=== PATIENT | female | born 1945 | race Caucasian/White ===

== ENCOUNTER 2017-10-10 13:45 | Outpatient (RCR) | payer MEDICARE, OTHER ==
--- NOTE | 2017-07-19 10:56 | PT INITIAL EVALUATION ---
MEDICAL DIAGNOSIS: recurrent falls TREATMENT DIAGNOSIS: same, low back pain with radiating pain, neck pain, R knee pain DATE OF ONSET: 07/18/15 SUBJECTIVE: Helena Ceballos presents to physical therapy with complaints of recurrent falls, low back pain with radiating pain, and neck pain that has started approximately 2 years ago and feels like her low back pain with radiating pain is getting worse and limiting her ability to ambulate any distance, as a result, she has decreased her activity level because of the pain , which has resulted in decreased balance, strength, and function along with more frequent falls. She states that she has experienced 4-5 falls in the past 6 months to a year. She reports that she had her R shoulder RTC repaired twice and L TKA in the recent years. Furthermore, she reports increased R knee pain due to arthritis. She reports that she would like to resolve the low back pain prior to anything else and then transition to strengthening and balance exercises to further reduce her reoccurrence of falls. She reports that she was going to get some Cortizone shots in her low back regions, however, the physicians could not agree on the certain level within the lumbar spine. She states that she has had a history of bulging discs at L 3-4 and L 4-5. She reports that when she does her aggravating activities such as vacuuming, cooking, bending forward, or doing laundry, she rates her pain to be 9/10. Pain location is L gluteal near PSIS (radiates down posterior thigh and then into L lateral and described as dull achy (constant) . Pain scale is 4 on a ten point pain scale. Pain is worse with vacuuming, cooking, bending forward, doing laundry and better with sitting, resting. REHAB PROBLEM LIST: PREVIOUS MEDICAL HISTORY: See EMR OCCUPATION: Retired from [employer] OBJECTIVE: Posture: She demonstrated B rounded shoulders, increased thoracic kyphosis, and decreased lumbar lordosis. ROM: NIL with trunk flexion, R/L sidegliding, minimal restriction with extension and empty end feels with all. Strength: Core strength: upper core: 4/5, middle core: 3+/5, and lower core: 4-/ 5. Pain with core strength testing Palpation: TTP over L gluteal region near PSIS and L3-5 spinous/facets Sensation: WNLs with dermatomes: L2-S2 Special Tests: Repeated flexion in standing: pain felt at end feel and worse following testing. Repeated extension in standing: stretch felt at end feel and better (abolished her pain) following testing. Repeated flexion in lying: stretch felt at end feel and worse (increased pain intensity) following testing. Repeated extension in lying: stretch felt at end feel and better ( abolished her pain) following testing. Add pressure to repeated extension in lying with further centralization and decreased symptoms following. As a result a lateral component does not exist, therefore, it is not necessary to test R or L side gliding. Mobility: Independent Gait: No AD: demonstrated increased base of support, decreased velocity, antalgic gait, decreased trunk rotation, decreased B UE movement (swing). Balance: Will test in future ASSESSMENT: Helena will benefit from skilled physical therapy addressing the listed impairments to return to prior level of function. Following the examination, she demonstrates symptoms that are consistent with posterior derangement that responded well to extension based principles in both her cervical and low back regions. Short Term Goals 2 weeks: Pt will demonstrate centralized low back symptoms to improve function and QOL. 4 weeks: Pt will demonstrate abolished low back symptoms with function activities to improve function and QOL. 6 weeks: Pt will be able to ambulate more than 1/2 mile with 0/10 low back pain to improve function and QOL. 8 weeks: Pt will be able to perform tandem stance/decreased base of support with eyes closed on a complaint surface for greater than 30 seconds with 0/10 low back pain to improve function and QOL. Patient's Goals decrease low back pain so that she can get back to walking along with getting back to balance/strength exercises to prevent these reoccurring falls PLAN: Patient to be seen for manual therapy, ther ex, neuromuscular reeducation , home exercise program, and gait training. If you have any questions, comments, or concerns about this report or plan, please contact me at . Thank you, Miguel Kay, PT, DPT [facility]
--- NOTE | 2017-09-15 14:20 | PT PLAN OF CARE ---
Physician: Emily Jordan MD Patient is being seen: 2x/week Therapist: Miguel Kay, PT, DPT Medical Diagnosis: recurrent falls Treatment Diagnosis: same, low back pain with radiating pain, neck pain, R knee pain Date of Onset: 07/18/15 Date of Initial Evaluation: 07/18/17 Date patient was last seen: 09/14/17 Number of treatments: 10 Number of cancellations/No shows: 3 INTERVENTIONS: PLAN: Patient to be seen for manual therapy, ther ex, neuromuscular reeducation, home exercise program, and gait training. Short Term Goals 2 weeks: Pt will demonstrate centralized low back symptoms to improve function and QOL. MET 4 weeks: Pt will demonstrate abolished low back symptoms with function activities to improve function and QOL. MET 6 weeks: Pt will be able to ambulate more than 1/2 mile with 0/10 low back pain to improve function and QOL. MET 8 weeks: Pt will be able to perform tandem stance/decreased base of support with eyes closed on a complaint surface for greater than 30 seconds with 0/10 low back pain to improve function and QOL. Progressing toward Patient's Goals decrease low back pain so that she can get back to walking along with getting back to balance/strength exercises to prevent these reoccurring falls Status of Patient's Goals: Progressing well Patient Compliance: Good Prognosis: Good Reasons for continuing therapy: This is a progress note for Helena Ceballos. She reports that her back continues to do well. She states that if she does have pain or twigs, she is able to do her exercise and they go completely away. She states that she has not had any vertigo since the previous session. She states that she now wants to work on her balance and endurance during ambulation. She continues to progress well within PT and has demonstrated the following improvements: abolished low back pain and increased trunk AROM in all directions with normal end feels. Within her neuromuscular system, it appears the her vestibular system is currently relaying on her vision and somatosensation, therefore, moving forward in PT, we would like to improve the response from her vestibular system to improve balance strategies and return her to prior level of function. As a result, we would like to continue PT 2x/ week for 4 more weeks. OBJECTIVE: Posture: She demonstrated B rounded shoulders, increased thoracic kyphosis, and decreased lumbar lordosis. ROM: NIL with trunk flexion, R/L sidegliding, NIL with extension and normal end feels with all. Strength: Core strength: upper core: 4/5, middle core: 4-/5, and lower core: 4/ 5. No pain Palpation: No longer is TTP Special Tests: roll test to the R and L (+) for positional vertigo. posterior/ anterior canal to the R and L (-). Sensation: WNLs with dermatomes: L2-S2 Mobility: Independent Gait: No AD: demonstrated increased base of support, decreased velocity, antalgic gait, decreased trunk rotation, decreased B UE movement (swing). Balance: Complaint surface with normal or decreased base of support with eyes closed > 10 seconds. tandem stance, eyes opened, on compliant surface > 10 seconds. She did not have any difficulty with eyes opened on firm or compliant surface with normal base of support or decreased base of support. If you have any questions, comments, or concerns about this report or plan, please contact me at . Thank you, Miguel Kay, PT, DPT [facility]
[~2017-10-10 13:45] MED LIST: ALBU8.5H IH; AMI10 PO; AMIT-108 PO; AMLO-99 PO; AMOX-362 PO; ASPI-1471 PO; ATOR20TA65 PO; BIOT250012 PO; BISA-236 RC; BUPR-472 PO; CALC-733 PO; CALC1TAB32 PO; CALC600T63 PO; CHLO12TA PO; CHOL10005 PO; CHOL200021 PO; CIPR-345 PO; CITA-139 PO; CITA-141 PO; CYAN1000 IJ; DUL20 PO; DULO60CA7 PO; FERR27TA3 PO; FLU180SY9 IM; FLU44R INH; FLU45SYR17 IM; FLU45SYR25 IM ONLY; LEVO75TA73 PO; LISI-1 PO; LISI-362 PO; LISI5TAB25 PO; LOR5 PO; LOR5/325 PO; LOSA-51 PO; LOSA-54 PO; MELO-150 PO; MET500 PO; MOM PO; NAPR-1043 PO; NEED-601 MC; OMEP-125 PO; OXYC-373 PO; PER PO; PNEU0.5D3 IM; RIV10 PO; ROPI0.2528 PO; ROSU20TA3 PO; SIMV-54 PO; SUMA50TA34 PO; TORADOL; TRA50 PO; TUM500 PO; ZOLP-1 PO; [UNRECOGNIZED DRUG - CODE] MC
--- NOTE | 2017-10-27 14:05 | PT PLAN OF CARE ---
Physician: Emily Jordan MD Patient is being seen: 1-2x/week Therapist: Miguel Kay, PT, DPT Medical Diagnosis: recurrent falls Treatment Diagnosis: same, low back pain with radiating pain, neck pain, R knee pain Date of Onset: 07/18/15 Date of Initial Evaluation: 07/18/17 Date patient was last seen: 10/26/17 Number of treatments: 14 Number of cancellations/No shows: 0 INTERVENTIONS: PLAN: Patient to be seen for manual therapy, ther ex, neuromuscular reeducation, home exercise program, and gait training. Short Term Goals 2 weeks: Pt will demonstrate centralized low back symptoms to improve function and QOL. MET 4 weeks: Pt will demonstrate abolished low back symptoms with function activities to improve function and QOL. MET 6 weeks: Pt will be able to ambulate more than 1/2 mile with 0/10 low back pain to improve function and QOL. MET 8 weeks: Pt will be able to perform tandem stance/decreased base of support with eyes closed on a complaint surface for greater than 30 seconds with 0/10 low back pain to improve function and QOL. MET Patient's Goals decrease low back pain so that she can get back to walking along with getting back to balance/strength exercises to prevent these reoccurring falls Status of Patient's Goals: MET Patient Compliance: Good Prognosis: Good Reasons for continuing therapy: This is a discharge note for Helena Ceballos. She reports that she is doing well. She denies any back pain. She states that if the pain has returned she is able to abolish the back pain quickly by performing her exercise. She states that she feels like the balance and walking has significantly improved. She states that she feels like she can perform the recovery of function at home with her current home exercise program. She has progressed well within PT with the following improvements: increased balance strategies, increased involvement of vestibular system as demonstrated by increased time from 10 seconds to 60 seconds with complaint surface, eyes closed , and decreased base of support, abolished low back pain, increased trunk AROM in all directions with normal end feels, and return to prior level. She reports that she feels like she is independent on her HEP and will continue to perform. She has met all of her goals. As a result, she will be discharged from PT to [facility]. OBJECTIVE: Posture: She demonstrated B rounded shoulders, increased thoracic kyphosis, and decreased lumbar lordosis. ROM: NIL with trunk flexion, R/L sidegliding, NIL with extension and normal end feels with all. Strength: Core strength: upper core: 4/5, middle core: 4/5, and lower core: 4/ 5. No pain Palpation: No longer is TTP Special Tests: roll test to the R and L (-) for positional vertigo. posterior/ anterior canal to the R and L (-). Sensation: WNLs with dermatomes: L2-S2 Mobility: Independent Gait: No AD: demonstrated increased base of support, decreased velocity, antalgic gait, decreased trunk rotation, decreased B UE movement (swing). Balance: Complaint surface with normal or decreased base of support with eyes closed > 60 seconds. tandem stance, eyes opened, on compliant surface 60 seconds. If you have any questions, comments, or concerns about this report or plan, please contact me at . Thank you, Miguel Kay, PT, DPCatherine ZARAGOZA
== END 2017-10-27 ==
LOC: PT 13:45
PROVIDERS: ATTEND Emergency Medicine
DX: R29.6 Repeated falls (principal); M54.5 Low back pain; M54.2 Cervicalgia; M25.561 Pain in right knee; M06.9 Rheumatoid arthritis, unspecified; M62.81 Muscle weakness (generalized); Z96.652 Presence of left artificial knee joint
CPT/HCPCS: 97162

== ENCOUNTER → 2017-11-20 | Outpatient (CLI) | payer MEDICARE, OTHER ==
[~2017-11-20] MED LIST changes: +ROSU20TA13 PO; -ROSU20TA3 PO
--- NOTE | 2017-11-21 10:12 | RADIOLOGY IMAGING REPORT ---
FACILITY: [facility] - [place] PATIENT NAME: FER SALMON : [id number] MR: [id number] V: [id number] EXAM DATE: ORDERING PHYSICIAN: NICKY WHEELER TECHNOLOGIST: Lev Bell EXAMINATION:TWO-DIMENSIONAL ECHOCARDIOGRAPH REASON:HEART MURMUR. 2D Measurements (normal values in centimeters) LV endLV endRV endVent.LV PostAorticLeftPercent DiastolicSystolicDiastolicSeptumWallRootAtriumShortening (3.5-5.7)(0.9-2.6)(0.6-1.1)(0.6-1.1)(2.0-3.7)(1.9-4.0)(25-35%) [id number]% STROKE VOLUME: 88 mL ESTIMATED EJECTION FRACTION:77% PARASTERNAL LONG AXIS: Overall left ventricular systolic function appears to be normal. No wall motion abnormalities are noted. The aortic valve is mildly sclerotic but appears to open normally. Mitral valve also appears to open normally. Color examination of the valves reveals a trace amount of mitral insufficiency. Color examination of the aortic valve was unremarkable. PARASTERNAL SHORT AXIS: Overall left ventricular systolic function is normal. Chamber sizes also appear to be normal. The aortic valve is trileaflet in configuration and appears to open normally with minimal aortic sclerosis. Color examination of the pulmonic valve reveals a trace of pulmonic insufficiency. Color examination of the aortic valve was unremarkable. APICAL FOUR AND TWO CHAMBER: Normal left ventricular ejection fraction and normal chamber sizes. The right ventricle appears to contract normally. The TAPSE is measured at 2.3 which is normal. Left atrial and right atrial volumes are measured within normal range at 23.5 and 16.2 mL/m2. Aortic valve area and mitral valve area both measure within normal range at 2.7 and 2.8 cm2 respectively. Mile amount of tricuspid insufficiency is noted. A trace of mitral insufficiency is noted. Tricuspid regurgitation V-max is measured at 3.11 m/sec. Estimated right atrial pressure is 3 mmHg giving a total right ventricular pressure of 42 mmHg. SUBCOSTAL VIEW: No pericardial effusion was noted. No atrial septal or ventricular septal defects were appreciated. The Doppler examination of the mitral valve in diastole does reveal a normal pattern but there is decreased medial and lateral E prime velocities. There is no reversal with Valsalva maneuver. IVC is normal in size. OVERALL IMPRESSION: 1. Normal left ventricular ejection fraction of 77% with a grade 2/4 decrease in diastolic function. 2. Normal chamber sizes. 3. Trileaflet aortic valve with mild aortic sclerosis but no stenosis nor any insufficiency present. 4. A trace of mitral insufficiency. 5. A trace of pulmonic insufficiency. 6. There is a mild amount of tricuspid insufficiency with estimated right ventricular systolic pressures at 42 mmHg which does include an estimated right atrial pressure of 3 mmHg indicating mild pulmonary hypertension and increased right ventricular systolic pressures. Dictated by: Rebecca Espinoza M.D. on 11/20/2017 at 14:10 Transcribed by: VIDAL on 11/21/2017 at 10:00 Approved by: Rebecca Espinoza M.D. on 11/21/2017 at 10:11 [facility]
--- NOTE | 2017-11-22 09:31 | RADIOLOGY IMAGING REPORT ---
FACILITY: [facility] PATIENT NAME: FER SALMON : [id number] MR: [id number] V: [id number] EXAM DATE: [id number] ORDERING PHYSICIAN: NICKY WHEELER TECHNOLOGIST: Natividad Koch PROCEDURE:BILATERAL DIAGNOSTIC DIGITAL MAMMOGRAM WITH CAD AND 3D BREAST TOMOSYNTHESIS. LIMITED LEFT BREAST ULTRASOUND COMPARISON:Mammogram of 01/13/16 and 12/05/12. INDICATIONS:PALPABLE ABNORMALITY IN THE 4 O'CLOCK AREA OF THE LEFT BREAST. MAMMOGRAPHIC FINDINGS: The breasts have scattered fibroglandular parenchymal densities. There are a few small benign appearing nodular foci or masses in the breasts some of which punctate central calcifications suggesting hyalinized fibroadenomas. No concerning mass is demonstrated on either side. No focal mammographic finding of concern in the 4 o'clock area of the left breast. ULTRASOUND FINDINGS: Imaging of the lateral aspect of the breast concentrating in the area of palpable concern at 4 o'clock was performed. There is no discrete solid or cystic abnormality in the region of palpable concern shown by the patient. Ultrasound does show a tiny cyst closer to the 3 o'clock area in the breast. No suspicious sonographic finding. DIAGNOSTIC CATEGORY 2--BENIGN FINDING. RECOMMENDATIONS: ROUTINE MAMMOGRAM AND CLINICAL EVALUATION. CLINICAL EVALUATION. IMPRESSION: Bi-RADS 2: Benign finding. RECOMMENDATION: 1. Clinical followup of the area of palpable concern on the left. In the absence of imaging, management should be based on clinical grounds. 2. Followup mammogram in one year. I discussed exam findings with the patient at the completion of the ultrasound. Dictated by: Dyllan Duarte on 11/20/2017 at 15:08 Transcribed by: VIDAL on 11/20/2017 at 23:23 Approved by: Carola Jeffrey M.D. on 11/22/2017 at 8:55 [facility]
--- NOTE | 2017-11-22 09:31 | RADIOLOGY IMAGING REPORT ---
FACILITY: [facility] - [place], [place] PATIENT NAME: FER SALMON : [id number] MR: [id number] V: [id number] EXAM DATE: [id number] ORDERING PHYSICIAN: NICKY WHEELER TECHNOLOGIST: Zonia Bazzi PROCEDURE:BILATERAL DIAGNOSTIC DIGITAL MAMMOGRAM WITH CAD AND 3D BREAST TOMOSYNTHESIS. LIMITED LEFT BREAST ULTRASOUND COMPARISON:Mammogram of 01/13/16 and 12/05/12. INDICATIONS:PALPABLE ABNORMALITY IN THE 4 O'CLOCK AREA OF THE LEFT BREAST. MAMMOGRAPHIC FINDINGS: The breasts have scattered fibroglandular parenchymal densities. There are a few small benign appearing nodular foci or masses in the breasts some of which punctate central calcifications suggesting hyalinized fibroadenomas. No concerning mass is demonstrated on either side. No focal mammographic finding of concern in the 4 o'clock area of the left breast. ULTRASOUND FINDINGS: Imaging of the lateral aspect of the breast concentrating in the area of palpable concern at 4 o'clock was performed. There is no discrete solid or cystic abnormality in the region of palpable concern shown by the patient. Ultrasound does show a tiny cyst closer to the 3 o'clock area in the breast. No suspicious sonographic finding. DIAGNOSTIC CATEGORY 2--BENIGN FINDING. RECOMMENDATIONS: ROUTINE MAMMOGRAM AND CLINICAL EVALUATION. CLINICAL EVALUATION. IMPRESSION: Bi-RADS 2: Benign finding. RECOMMENDATION: 1. Clinical followup of the area of palpable concern on the left. In the absence of imaging, management should be based on clinical grounds. 2. Followup mammogram in one year. I discussed exam findings with the patient at the completion of the ultrasound. Dictated by: Dyllan Duarte on 11/20/2017 at 14:37 Transcribed by: VIDAL on 11/20/2017 at 23:22 Approved by: Carola Jeffrey M.D. on 11/22/2017 at 8:55 [facility]
== END ==
LOC: US 02:08
PROVIDERS: ATTEND Emergency Medicine
DX: I08.3 Combined rheumatic disorders of mitral, aortic and tricuspid valves (principal); I27.20 Pulmonary hypertension, unspecified; N60.02 Solitary cyst of left breast
CPT/HCPCS: 77062; 77066; 93306

== ENCOUNTER → 2018-02-02 | Outpatient (CLI) | payer MEDICARE, OTHER ==
[~2018-02-02] MED LIST changes: +HYDR-2966 PO; +RANI-324 PO
[2018-02-02 09:09] LABS: PLATELET COUNT, AUTOMATED 172 K/uL (150-450)
[2018-02-02 09:35] LABS: LDL CHOLESTEROL 80 mg/dl
== END ==
LOC: LAB 08:40
PROVIDERS: ATTEND Emergency Medicine
DX: I10 Essential (primary) hypertension (principal); E53.8 Deficiency of other specified B group vitamins; R73.03 Prediabetes
CPT/HCPCS: 36415; 82040; 82247; 82310; 82374; 82435; 82465; 82565; 82607; 82947; 83036; 83718; 84075; 84132; 84155; 84295; 84450; 84460; 84478; 84520; 85025

== ENCOUNTER → 2018-05-25 | Outpatient (CLI) | payer MEDICARE, OTHER ==
[~2018-05-25] MED LIST changes: -CITA-139 PO; +CITA-145 PO; -RANI-324 PO; +RANI-366 PO; -ROSU20TA13 PO; +ROSU20TA5 PO; +SITA100T PO; +UMEC1DIS INH
== END ==
LOC: LAB 12:02
PROVIDERS: ATTEND Emergency Medicine
DX: E11.9 Type 2 diabetes mellitus without complications (principal); E03.9 Hypothyroidism, unspecified
CPT/HCPCS: 36415; 82310; 82374; 82435; 82465; 82565; 82947; 83036; 83718; 84132; 84295; 84443; 84478; 84520

== ENCOUNTER → 2018-06-27 | Outpatient (CLI) | payer MEDICARE, OTHER ==
[~2018-06-27] MED LIST changes: +AMLO-113 PO; -AMLO-99 PO; +BLOO-1037 MC; +BLOO-960 MC; +INSU200I4 SC; +LANC-714 MC; -ROPI0.2528 PO; +ROPI0.2530 PO
== END ==
LOC: RESP 20:43
PROVIDERS: ATTEND Emergency Medicine
DX: G47.33 Obstructive sleep apnea (adult) (pediatric) (principal); G47.61 Periodic limb movement disorder; G47.36 Sleep related hypoventilation in conditions classified elsewhere

== ENCOUNTER → 2018-08-06 | Outpatient (CLI) | payer MEDICARE, OTHER ==
[~2018-08-06] MED LIST changes: +FLU180SY11 IM
[2018-08-06 15:13] LABS: PLATELET COUNT, AUTOMATED 188 K/uL (150-450)
== END ==
LOC: LAB 14:52
PROVIDERS: ATTEND Emergency Medicine
DX: Z01.818 Encounter for other preprocedural examination (principal); N39.0 Urinary tract infection, site not specified; R82.79 Other abnormal findings on microbiological examination of urine
CPT/HCPCS: 36415; 81001; 82040; 82247; 82310; 82374; 82435; 82565; 82947; 83036; 84075; 84132; 84155; 84295; 84450; 84460; 84520; 85025; 87088

== ENCOUNTER → 2018-08-09 | Outpatient (CLI) | payer MEDICARE, OTHER ==
--- NOTE | 2018-08-09 18:37 | EKG ---
FACILITY: [facility] - [place] PATIENT NAME: FER SALMON : [id number] MR: [id number] V: [id number] EXAM DATE: ORDERING PHYSICIAN: NICKY WHEELER TECHNOLOGIST: MARLIN Test Reason : SURGERY CLEARANCE Blood Pressure : / mmHG Vent. Rate : 066 BPM Atrial Rate : 066 BPM P-R Int : 152 ms QRS Dur : 110 ms QT Int : 448 ms P-R-T Axes : 050 -04 029 degrees QTc Int : 469 ms Normal sinus rhythm Incomplete left bundle branch block Nonspecific ST abnormality Abnormal ECG When compared with ECG of 27-MAY-2013 09:12, Incomplete left bundle branch block is now present Confirmed by DEEPIKA RUEDA ([id number]) on 08/10/2018 6:15:56 AM Referred By: LIAM Confirmed By:DEEPIKA RUEDA
== END ==
LOC: RESP 16:01
PROVIDERS: ATTEND Emergency Medicine
DX: Z02.9 Encounter for administrative examinations, unspecified (principal)

== ENCOUNTER → 2018-08-17 | Outpatient (CLI) | payer MEDICARE, OTHER | LOC: LAB 13:46 | PROVIDERS: ATTEND Anesthesiology | DX: Z01.812 Encounter for preprocedural laboratory examination (principal); M75.101 Unspecified rotator cuff tear or rupture of right shoulder, not specified as traumatic; E11.8 Type 2 diabetes mellitus with unspecified complications; E07.9 Disorder of thyroid, unspecified; N39.0 Urinary tract infection, site not specified | CPT/HCPCS: 81001 ==

== ENCOUNTER → 2018-08-21 | Outpatient (CLI) | payer MEDICARE, OTHER | LOC: LAB 13:42 | PROVIDERS: ATTEND Emergency Medicine | DX: N39.0 Urinary tract infection, site not specified (principal) | CPT/HCPCS: 81001 ==

== ENCOUNTER 2018-08-28 02:37 | Inpatient (IN) | payer MEDICARE, OTHER ==
[2018-08-27 16:34] LABS: INR 0.99
[2018-08-28] VITALS (17 sets, daily range): BP systolic 95–155; BP diastolic 45–86
[~2018-08-28] VITALS: Ht 160 cm; Wt 118.8 kg
[~2018-08-28 02:37] MED LIST changes: +ceFAZolin(*) 2GM/D5W 50ML 50 ML IVPB ONE
[2018-08-28] MEDS ORDERED: ROPIVACAINE 0.2% 20 ML VIAL ONE (06:37)
[2018-08-28] MEDS ORDERED: LIDO/EPI 2% MPF 1:200,000 20ML ONE ×2 (06:37→10:45)
[2018-08-28] MEDS ORDERED: fentaNYL CITR 250 MCG/5 ML AMP ONE (08:57)
[2018-08-28] MEDS ORDERED: LIDOCAINE 2% IV 100 MG/5ML SYR ONE (08:58)
[2018-08-28] MEDS ORDERED: PROPOFOL EMUL(*) 10MG/ML 20 ML 20 ML ONE (09:02)
[2018-08-28] MEDS ORDERED: PREGABALIN 75 MG CAPSULE PO ONE (09:15)
[2018-08-28] MEDS ORDERED: LIDOCAINE/SOD BICARB 8.4% SYR ID ONE (09:15)
[2018-08-28] MEDS ORDERED: BACITRACIN 50000 UNIT/VIAL 100,000 UNIT in NS 0.9% 3000 ML IRRIGATION BAG 3,000 ML IR ONE (09:15)
[2018-08-28] MEDS ORDERED: NORMOSOL R SOLN(*) 1000 ML BAG 1,000 ML IV PRN (09:15)
[2018-08-28] MEDS ORDERED: MIDAZOLAM 2 MG/2 ML VIAL IVP PRN (09:15)
[2018-08-28] MEDS ORDERED: ACETAMINOPHEN 500 MG TAB PO ONE (09:15)
[2018-08-28] MEDS ORDERED: ceFAZolin(*) 2GM/D5W 50ML 50 ML IVPB ONE (09:15)
[2018-08-28] MEDS ORDERED: cloNIDine EPIDUR INJ 100MCG/ML 40 MCG, ROPIVACAINE 0.5% 20 ML VIAL 25 ML, EPINEPHrine H... EPI ONE (09:15)
[2018-08-28] MEDS ORDERED: LIDO/EPI 1% MDV 1:100,000 20ML INFIL ONE (10:22)
[2018-08-28] MEDS ORDERED: ROCURONIUM BROM 10 MG/ML 10 ML ONE (10:30)
[2018-08-28] MEDS ORDERED: SUGAMMADEX SOD 500 MG/5 ML SDV ONE (10:30)
[2018-08-28] MEDS ORDERED: KETAMINE HCL 200 MG/20 ML MDV ONE ×2 (10:47→11:51)
[2018-08-28] MEDS ORDERED: VASOPRESSIN 20 UNIT/ML VIAL ONE (11:08)
[2018-08-28] MEDS ORDERED: EPINEPHrine HCL 1 MG/ML AMP ONE (11:16)
[2018-08-28] MEDS ORDERED: ONDANSETRON 4 MG/2 ML VIAL ONE (12:13)
[2018-08-28] MEDS ORDERED: FLUSH 10 ML SYR IVP PRN (13:10)
[2018-08-28] MEDS ORDERED: MAGNESIUM CITRATE 300 ML BTL PO PRN (13:10)
[2018-08-28] MEDS ORDERED: LR 1000 ML BAG 1000 ML IV PRN (13:10)
[2018-08-28] MEDS ORDERED: diphenhydrAMINE 50 MG/ML VIAL IVP PRN (13:10)
[2018-08-28] MEDS ORDERED: BISACODYL 10 MG SUPP PR PRN (13:10)
[2018-08-28] MEDS ORDERED: HYDROmorphone HCL 2 MG/ML SDV IVP PRN (13:10)
[2018-08-28] MEDS ORDERED: PROMETHAZINE 25 MG/ML 1 ML AMP IVP PRN (13:10)
[2018-08-28] MEDS ORDERED: ZOLPIDEM TARTRATE 5 MG TAB PO PRN (13:10)
[2018-08-28] MEDS ORDERED: ONDANSETRON 4 MG/2 ML VIAL IVP PRN (13:10)
[2018-08-28] MEDS ORDERED: diphenhydrAMINE 25 MG CAP PO PRN (13:10)
[2018-08-28] MEDS ORDERED: MAGNESIUM HYDROXIDE* 30ML UDCP PO PRN (13:10)
[2018-08-28] MEDS ORDERED: fentaNYL CITR 100 MCG/2 ML AMP ONE (13:14)
--- NOTE | 2018-08-28 14:22 | OPERATIVE REPORT 1 ---
EVENT DATE: August 28, 2018 SURGEON: Lee Victor MD ANESTHESIOLOGIST: ANESTHESIA: General LMA. SALES NEGOTIATOR: RADHA Estrada, INDEPENDENT VIDEO PRODUCER PREOPERATIVE DIAGNOSIS Right shoulder rotator cuff tear arthropathy and failed rotator cuff repair prior. POSTOPERATIVE DIAGNOSIS Right shoulder rotator cuff tear arthropathy and failed rotator cuff repair prior. PROCEDURE PERFORMED Right reverse total shoulder arthroplasty with removal of implant deep x2, which were the suture anchors from the prior repair. FINDINGS The patient had a significant amount of arthritic changes associated with the rotator cuff tear and also loose fragments associated with the prior anchors. ESTIMATED BLOOD LOSS About 240 mL. DRAINS None. COMPLICATIONS None. TOURNIQUET TIME Not applicable. IMPLANTS USED DJO surgical reverse with standard reverse glenoid baseplate, four screws which were 30 mm, 22 mm, 26 mm and 14 mm, a 32/-4 glenoid head with standard screw and 8 porous coated standard stem with 32 mm standard poly. SPECIMENS None. INDICATIONS AND HISTORY: This patient is a 73-year-old female that presented to my clinic for evaluation of right shoulder pain and irritation going on for some time. She failed the rotator cuff repair previously and continued to have pain and irritation associated with the shoulder. We decided to go ahead with reverse total shoulder arthroplasty since she had failed a prior soft tissue procedure and since she had started to develop arthritic changes associated with this. The risks and benefits were discussed with the patient and inform consent was obtained at the last clinic visit and we talked about the implications of this and how it does not guarantee great relief associated with it but most people get fairly good relief. DESCRIPTION OF PROCEDURE The patient was brought into the operating room. She and the procedure were both verified. She was placed supine on the operating table and induced intubated by anesthesia. The right upper extremity was prepped and draped in the usual fashion after the patient was put in the beach chair position. I then anesthetized the skin with 2% lidocaine solution with epinephrine. Another time-out was observed, verifying the correct patient and procedure. I then made a standard deltopectoral incision through the skin and subcutaneous tissue. I was then able to go down to the deltopectoral interval and identify the cephalic vein. Once I was able to identify the cephalic vein, I was then able to retract the deltoid to the lateral side and then tied in the biceps with tenodesis into the pectoral area. I then was able to get down to the clavipectoral fascia and then open up the subscap without any major difficulty using electrocautery on the lesser tuberosity. Once I was able to remove the subscap, I was then able to tag it for later repair. I then dislocated the shoulder and cut off the head without any major difficulty in the standard fashion for the DJO implant. I then removed all the osteophytes and then turned attention to the glenoid. Once on the glenoid, I was able to place retractors 360 degrees around the glenoid. I then was able to remove the labrum without any major difficulty associated with this and then was able to drill the central hole through the central portion of the glenoid in accordance with the DJO system. I then put in the standard tamp and was able to ream without any major difficulty and then was able to place the standard glenoid baseplate without any major difficulty associated with this and had good fixation associated with the bone. I then put in four locking screws with a 26 superior, 30 posterior, 26 inferior and 14 posterior associated with this. We then were able to ream around the outside of the glenoid baseplate and then put in the glenoid superior, which was a 32/-4 without any difficulty. I put in a set screw and then turned attention back to the humerus. Once on the humerus, I was then able to broach up to a 10 mm reamer through the central canal. I was unable to ream up top in order to ream down to the standard socket size for the reverse prosthesis. This was then followed by placement of four drill holes through the lesser tuberosity in order to repair the subscap after the case. I then was able to put in the standard 8 stem after bone grafting the humeral canal and then was able to relocate it with the standard liner without any major difficulty. I then removed that and put in the final liner, which was polyethylene liner from the DJO system. Once I relocated again and had good tension all over, I was able to move it all in all directions. I then repaired the subscap without any difficulty after irrigating with copious amounts of saline and injecting the pain cocktail throughout the joint. I then was able to irrigate again and close the deltopectoral interval with a #2 Stratafix followed by 2-0 Stratafix in the subcutaneous tissue and subcuticular 4-0 running Monocryl. The wound was then dressed with steri- strips, gauze, 4x4s and soft dressing. The patient was awakened, extubated and transferred to PACU in stable condition after being put in a standard sling. MILA
--- NOTE | 2018-08-28 15:07 | RADIOLOGY IMAGING REPORT ---
[facility] PATIENT NAME: Helena Ceballos : 1945 MR: [id number] V: [id number] EXAM DATE: ORDERING PHYSICIAN: VINOD DAWSON TECHNOLOGIST: Location: [facility] Patient: Helena Ceballos : 1945 Visit/Account:[id number] Date of Sevice: 08/28/2018 Exam type: SHOULDER 1 VIEW RIGHT History: S/P R SHOULDER Comparison: None. Findings: There is a reversed right shoulder arthroplasty appears in good anatomic alignment on this AP view IMPRESSION: 1. As above Report Dictated By: Carola Jeffrey MD at 08/28/2018 3:02 PM Report E-Signed By: Carola Jeffrey MD at 08/28/2018 3:03 PM WSN:[email or web address]
[2018-08-28] MEDS ORDERED: ALBUTEROL 2.5 MG/3 ML NEB NEB PRN (15:25)
--- NOTE | 2018-08-28 15:40 | Hospitalist Progress Note ---
Subjective Progress Notes Subjective No cp/sob. 240cc of EBL. 1850cc of crystalloid, vasopressin and ephedrine intra-op. Physical Exam Vital Signs Date Time Temp Pulse Resp B/P (MAP) Pulse Ox O2 Delivery O2 Flow Rate FiO2 08/28/18 14:45 75 18 117/62 (80) 92 Oxy Mask 5.0 08/28/18 14:10 97.1 General Appearance: Alert, Awake, No Acute Distress Cardiovascular: Regular Rate and Rhythm Respiratory: Clear to Auscultation Extremities: Edema (Trace pitting in shins) Integumentary: No Jaundice, No Cyanosis Assessment and Plan Problems: (1) S/p reverse total shoulder arthroplasty Status: Acute Assessment & Plan: No CV/pulmonary issues. No h/o DVT/PE. Will defer to Dr. Victor for DVT prophylaxis. (2) Insulin-requiring or dependent type II diabetes mellitus Status: Chronic Assessment & Plan: Chronically on Januvia and 68 units of Tresiba. Will continue Januvia and use 40 units of Lantus a day. AC and HS glucose with SSI level 2. (3) Hypertension Status: Chronic Assessment & Plan: Continue chronic amlodipine, losartan/hctz, and hctz with parameters. (4) Depression Status: Chronic Assessment & Plan: Continue chronic Cymbalta. (5) Hypercholesterolemia Status: Chronic Assessment & Plan: Continue chronic Crestor. (6) PLMD (periodic limb movement disorder) Status: Chronic Assessment & Plan: Continue chronic ropinirole. (7) JERRY treated with BiPAP Status: Chronic Assessment & Plan: She brought her BiPAP. (8) Morbid obesity Status: Chronic Exam Sepsis Risk: No Definite Risk Problem Qualifiers (1) S/p reverse total shoulder arthroplasty: Laterality: right Qualified Codes: Z96.611 - Presence of right artificial shoulder joint BILL KNIGHT MD Aug 28, 2018 15:40
[2018-08-28] MEDS: INSULIN HUM LISPRO 100 UN/ML 3 ML VIAL SUBQ PRN ×2 (17:09→21:02)
[2018-08-28] MEDS: FLUTICASONE PROP 44 MCG INH INH SCH (17:14)
[2018-08-28] MEDS: ceFAZolin(*) 2GM/D5W 50ML 50 ML IVPB SCH (17:21)
[2018-08-28] MEDS ORDERED: ROSUVASTATIN CALCIUM 10 MG TAB PO SCH (21:00)
[2018-08-28] MEDS ORDERED: AMITRIPTYLINE HCL 25 MG TAB PO SCH (21:00)
[2018-08-28] MEDS: RANITIDINE HCL 150 MG TAB PO SCH (21:02)
[2018-08-29] MEDS: ceFAZolin(*) 2GM/D5W 50ML 50 ML IVPB SCH ×2 (02:21→09:38)
[2018-08-29 03:33] VITALS: BP 110/61
[2018-08-29] MEDS: FLUTICASONE PROP 44 MCG INH INH SCH (05:33)
[2018-08-29] MEDS ORDERED: UMECLIDINIUM BRM INH SCH (06:00)
[2018-08-29] MEDS ORDERED: VILANTEROL TR INH SCH (06:00)
--- NOTE | 2018-08-29 06:47 | Hospitalist Progress Note ---
Subjective Progress Notes Subjective No cp/sob. Physical Exam Vital Signs Date Time Temp Pulse Resp B/P (MAP) Pulse Ox O2 Delivery O2 Flow Rate FiO2 08/29/18 05:33 94 High-Flow Nasal Cannula 8.0 08/29/18 03:33 98.3 65 110/61 (77) 08/28/18 21:52 20 Intake and Output 08/29/18 07:00 Intake Total 2390 ml Balance 2390 ml Intake Oral 100 ml IV Total 2290 ml # Voids 1 General Appearance: Alert, Awake, No Acute Distress Result Diagram: 08/29/18 0553 08/29/1853 Assessment and Plan Problems: (1) S/p reverse total shoulder arthroplasty Status: Acute Assessment & Plan: No CV/pulmonary issues. No h/o DVT/PE. Will defer to Dr. Nataliia Young for DVT prophylaxis. (2) Insulin-requiring or dependent type II diabetes mellitus Status: Chronic Assessment & Plan: Chronically on Januvia and 68 units of Tresiba. Will continue Januvia and use 40 units of Lantus a day while in the hospital. AC and HS glucose with SSI level 2. (3) Hypertension Status: Chronic Assessment & Plan: Continue chronic amlodipine, losartan/hctz, and hctz with parameters. (4) Depression Status: Chronic Assessment & Plan: Continue chronic Cymbalta. (5) Hypercholesterolemia Status: Chronic Assessment & Plan: Continue chronic Crestor. (6) PLMD (periodic limb movement disorder) Status: Chronic Assessment & Plan: Continue chronic ropinirole. (7) JERRY treated with BiPAP Status: Chronic Assessment & Plan: She brought her BiPAP. (8) Morbid obesity Status: Chronic Exam Sepsis Risk: No Definite Risk Problem Qualifiers (1) S/p reverse total shoulder arthroplasty: Laterality: right Qualified Codes: Z96.611 - Presence of right artificial shoulder joint BILL KNIGHT MD Aug 29, 2018 06:47
[2018-08-29 07:21] VITALS: BP 158/79
[2018-08-29] MEDS ORDERED: OXYC-373 PO (08:26)
[2018-08-29] MEDS: RANITIDINE HCL 150 MG TAB PO SCH (08:32)
[2018-08-29] MEDS: INSULIN HUM LISPRO 100 UN/ML 3 ML VIAL SUBQ PRN ×2 (08:36→12:26)
[2018-08-29] MEDS ORDERED: DULoxetine HCL 30 MG CAPCR PO SCH (09:00)
[2018-08-29] MEDS ORDERED: amLODIPine BESYL(*) 5 MG TAB PO SCH (09:00)
[2018-08-29] MEDS ORDERED: LOSARTAN POTASSIUM 50 MG TAB PO SCH (09:00)
[2018-08-29] MEDS ORDERED: INSULIN GLARGINE 100 U/ML 3 ML PEN SUBQ SCH (09:00)
[2018-08-29] MEDS ORDERED: HYDROCHLOROTHIAZIDE 25 MG TAB PO SCH (09:00)
== END 2018-08-29 13:45 | disposition home or self-care (01) | DRG 483 ==
LOC: OR 02:37 → MED 14:00
PROVIDERS: ADMIT Orthopaedic Surgery; ATTEND Orthopaedic Surgery
PROC: 0RRJ00Z Replacement of Right Shoulder Joint with Reverse Ball and Socket Synthetic Substitute, Open Approach (ICD-10-PCS; principal; 2018-08-28 10:37)
DX: M19.011 Primary osteoarthritis, right shoulder (principal); Z68.42 Body mass index [BMI] 45.0-49.9, adult; E11.9 Type 2 diabetes mellitus without complications; I10 Essential (primary) hypertension; G47.33 Obstructive sleep apnea (adult) (pediatric); E66.01 Morbid (severe) obesity due to excess calories; J45.909 Unspecified asthma, uncomplicated; K21.9 Gastro-esophageal reflux disease without esophagitis; G25.81 Restless legs syndrome; E78.5 Hyperlipidemia, unspecified; F32.9 Major depressive disorder, single episode, unspecified; G47.61 Periodic limb movement disorder; Z99.81 Dependence on supplemental oxygen; Z79.4 Long term (current) use of insulin; Z90.49 Acquired absence of other specified parts of digestive tract; Z90.710 Acquired absence of both cervix and uterus; Z96.652 Presence of left artificial knee joint
CPT/HCPCS: 36415; 36416; 82310; 82374; 82435; 82565; 82947; 82948; 84132; 84295; 84520; 85014; 85018; 85610; 86850; 86900; 86901; 94640; 97165; A4565; C1776; J0171; J0690; J1815; J2001; J2250; J2405; J2704; J2795; J3010; J3490

== ENCOUNTER 2018-08-30 08:32 | Emergency (ER) | payer MEDICARE, OTHER ==
--- NOTE | 2018-08-30 08:33 | ER Report ---
History and Physical Time Seen By MD: 08:33 HPI/ROS CHIEF COMPLAINT: SOB HISTORY OF PRESENT ILLNESS: Patient is a 73-year-old female who is postop day #2 from a right shoulder surgery. Patient wears 3 L of oxygen during the day and CPAP at nighttime. She states the CPAP must have come off sometime last evening. Patient called EMS because of shortness of breath. EMS found the patient lying on the floor. She states she fell but does not really recall the circumstances of the fall. Patient denies any current anticoagulation. She denies headache. She denies chest pain. She does report exertional shortness of breath. She denies abdominal pain. She is also complaining of pain to the right shoulder that apparently feels like her postop surgical pain. She is also complaining of left hip and buttock pain which is new. Patient was able to stand and bear weight on the affected extremity according to EMS. REVIEW OF SYSTEMS: Constitutional: No fever, no chills. Eyes: No discharge. ENT: No sore throat. Cardiovascular: mild chest pressure, no palpitations. Respiratory: Dyspnea Gastrointestinal: No abdominal pain, no vomiting. Genitourinary: No hematuria. Musculoskeletal: Right shoulder pain, left hip pain Skin: No rashes. Neurological: No headache. Allergies: Coded Allergies: Sulfa (Sulfonamide Antibiotics) (Verified Allergy, Intermediate, RASH, 08/30/18) lisinopril (Verified Allergy, Intermediate, cough, 08/30/18) Uncoded Allergies: HAYFEVER (Allergy, Intermediate, SNEEZING, ITCHY EYES, 06/04/13) TAPES/ADHESIVES (Allergy, Mild, BLISTERS , 07/05/17) Home Meds Active Scripts Insulin Degludec (Tresiba Flextouch U-200) 200 Unit/Ml (3 Ml) Insuln.pen, 68 UNITS SC DAILY, #2 BOX 8 Refills Prov:NICKY WHEELER MD 08/09/18 Duloxetine HCl (Duloxetine HCl) 60 Mg Capsule.dr, 2 CAP PO DAILY, #180 CAP 1 Refill Prov:NICKY WHEELER MD 07/27/18 Sitagliptin Phosphate (JANUVIA) 100 Mg Tablet, 100 MG PO QDAY, #90 TAB 0 Refills Prov:NICKY WHEELER MD 07/04/18 Lancets (LANCETS) 1 Each Each, EACH MC DAILY, #1 Prov:NICKY WHEELER MD 06/25/18 Blood Sugar Diagnostic (BLOOD GLUCOSE TEST STRIP) 1 Each Strip, 1 EACH MC DAILY, #100 STRIP 3 Refills Prov:NICKY WHEELER MD 06/25/18 Blood-Glucose Meter (BLOOD GLUCOSE METER) 1 Each Each, EACH MC, #1 Prov:NICKY WHEELER MD 06/25/18 Umeclidinium Brm/Vilanterol Tr (Anoro Ellipta 62.5-25 Mcg INH) 1 Each Disk.w.dev, 1 INHALATION INH DAILY, #30 INHALER Prov:NICKY WHEELER MD 05/25/18 Ropinirole Hcl (ROPINIROLE HCL) 0.25 Mg Tablet, 1 TAB PO QHS, #90 TAB 1 Refill One to three hours before bedtime Prov:NICKY WHEELER MD 03/28/18 Amitriptyline Hcl (AMITRIPTYLINE HCL) 50 Mg Tablet, 1 TAB PO QHS, #90 TAB 3 Refills Prov:NICKY WHEELER MD 02/06/18 Hydrochlorothiazide (HYDROCHLOROTHIAZIDE) 25 Mg Tablet, 1 TAB PO QDAY, #90 TAB 3 Refills Prov:NICKY WHEELER MD 02/05/18 Ranitidine Hcl (ZANTAC) 150 Mg Tablet, 150 MG PO BID, #60 TAB 11 Refills Prov:NICKY WHEELER MD 02/02/18 Cyanocobalamin (Vitamin B-12) (CYANOCOBALAMIN INJECTION) 1,000 Mcg/1 Ml Vial, 1 ML IJ DIRECTED, #12 VIAL Inject 1 ml monthly for life Prov:NICKY WHEELER MD 12/07/17 Amlodipine Besylate (AMLODIPINE BESYLATE) 10 Mg Tablet, 1 TAB PO QDAY, #90 TAB 3 Refills Prov:NICKY WHEELER MD 12/07/17 Losartan/Hydrochlorothiazide (LOSARTAN-HCTZ 100-25 MG TAB) 1 Each Tablet, 1 EACH PO QDAY, #90 TAB 3 Refills Prov:NICKY WHEELER MD 12/07/17 [place], Disposable (NEEDLES) 1 Each Dis.needle, EACH MC DIRECTED, #22 23 guage 1 inch needles, use to give b12 injections. Prov:INCKY WHEELER MD 05/11/17 Syringe W-Cannula,Disp, 3ML (SYRINGE) 1 Each Disp.syrin, EACH MC DIRECTED, #22 Use for b12 injections Prov:NICKY WHEELER MD 05/11/17 Zolpidem Tartrate (AMBIEN) 5 Mg Tablet, 1 TAB PO QHS, #30 TAB 5 Refills Prov:NICKY WHEELER MD 03/31/17 Rosuvastatin Calcium (Rosuvastatin Calcium) 20 Mg Tablet, 1 TAB PO DAILY, #90 TAB 4 Refills Prov:NICKY WHEELER MD 02/08/17 Albuterol Sulfate 90 Mcg/Act (PROAIR HFA 90 MCG/ACT) 8.5 Gm Hfa.aer.ad, 2 PUFF IH Q4-6H, #1 INHALER 9 Refills Prov:NICKY WHEELER MD 01/26/16 Reported Medications Oxycodone Hcl/Acetaminophen (OXYCODONE-ACETAMINOPHEN 5-325) 1 Each Tablet, 1 EACH PO Q4H PRN for PAIN, #40 TAB 08/29/18 Cholecalciferol (Vitamin D3) (VITAMIN D3) 1,000 Unit Tablet, 1000 UNIT PO DAILY, TAB 05/19/17 Fluticasone Prop 44 Mcg (FLOVENT HFA 44 MCG) 44 Mcg Inha, 2 INH INH BID, INH 02/07/17 Calcium Carbonate (CALCIUM) 600 Mg Tablet, 1 TAB PO QDAY, TAB 11/25/15 Aspirin (ASPIR 81) 81 Mg Tablet.dr, 1 TAB PO QDAY, TAB 11/25/15 Discontinued Scripts Hydrocodone Bit/Acetaminophen (HYDROCODON-ACETAMINOPHEN 5-325) 1 Each Tablet, 1 TAB PO TID, #60 TAB Prov:NICKY WHEELER MD 06/14/18 Past Medical/Surgical History Past medical history for migraines, restless leg syndrome, history of cataracts, history of hypertension, hyperlipidemia, asthma, sleep apnea, GERD, depression, type II diabetes, recent shoulder surgery on 08/28/2018. Patient has august 15 which shows she was placed on continuous oxygen at 3 L nasal cannula for persistent pulse ox of less than or equal to 85% on room air Hx Smoking: No Smoking Status: Former Smoker Hx Alcohol Use: No Constitutional Vital Sign - Last 24 Hours 08/30/18 08/30/18 08/30/18 08/30/18 08:32 08:38 08:39 08:40 Temp 97.8 Pulse 85 81 Resp 18 B/P (MAP) 136/123 (127) 108/75 (86) 108/75 Pulse Ox 90 O2 Delivery Non-Rebreather 08/30/18 08/30/18 08/30/18 08/30/18 08:47 09:02 09:02 09:02 Pulse 79 79 Resp 16 12 Pulse Ox 92 90 O2 Delivery Non-Rebreather Non-Rebreather O2 Flow Rate 15.0 15.0 15 08/30/18 08/30/18 08/30/18 08/30/18 09:08 09:10 09:10 09:13 Pulse 79 79 Resp 16 10 B/P (MAP) 99/69 (79) Pulse Ox 93 93 O2 Delivery Non-Rebreather Non-Rebreather O2 Flow Rate 15.0 08/30/18 08/30/18 08/30/18 08/30/18 10:08 10:13 10:18 11:18 Pulse 78 79 72 Resp 20 14 18 B/P (MAP) 108/92 (97) Pulse Ox 94 88 91 O2 Delivery Non-Rebreather Non-Rebreather Non-Rebreather Physical Exam General/Constitutional: Patient is awake, alert, nontoxic wearing a facemask O2. Nonrebreather Head: Normocephalic and atraumatic. Eyes: Conjunctival clear, Pupils are equal and reactive to light. Extraocular muscles are intact and symmetrical. Sclera are clear and anicteric.. Nares: No rhinorrhea or bleeding. Turbinates are pink and moist. Oropharyngeal: Mucous membranes are moist. There is no pharyngeal erythema or exudate. There are no palatal petechiae. Uvula is midline and symmetrical. Neck: Supple, no adenopathy. Cardiovascular: Heart is regular rate and rhythm; grade 2/6 systolic ejection murmur Pulmonary: Lungs are clear to auscultation bilaterally. There are no wheezes, rales, or rhonchi. Chest rise is symmetrical Abdomen: Protuberant, soft, nontender, no guarding or peritoneal signs. Extremities: No gross deformities, No peripheral cyanosis. Able to move all 4 ex tremities. Left buttock pain no obvious deformity. Right shoulder is in a sling. The bandage was temporarily removed surgical site looks clean dry and intact. No evidence of infection Neuro: Alert and oriented X3, Skin: No rashes, skin is warm dry and well perfused. Medical Decision Making Data Points Result Diagram: 08/30/1890108/30/18901 Laboratory Hematology Test 08/30/18 09:02 Red Blood Count 3.84 M/uL (4.17-5.56) Mean Corpuscular Volume 98.1 fL (80.0-96.0) Mean Corpuscular Hemoglobin 32.5 pg (26.0-33.0) Mean Corpuscular Hemoglobin Concent 33.2 g/dL (32.0-36.0) Red Cell Distribution Width 14.3 % (11.5-14.5) Mean Platelet Volume 7.6 fL (7.2-11.1) Neutrophils (%) (Auto) 76.6 % (39.4-72.5) Lymphocytes (%) (Auto) 11.1 % (17.6-49.6) Monocytes (%) (Auto) 11.4 % (4.1-12.4) Eosinophils (%) (Auto) 0.3 % (0.4-6.7) Basophils (%) (Auto) 0.6 % (0.3-1.4) Nucleated RBC Relative Count (auto) 0.0 /100WBC Neutrophils # (Auto) 9.6 K/uL (2.0-7.4) Lymphocytes # (Auto) 1.4 K/uL (1.3-3.6) Monocytes # (Auto) 1.4 K/uL (0.3-1.0) Eosinophils # (Auto) 0.0 K/uL (0.0-0.5) Basophils # (Auto) 0.1 K/uL (0.0-0.1) Nucleated RBC Absolute Count (auto) 0.00 K/uL Prothrombin Time 14.5 seconds (12.0-14.4) Prothromb Time International Ratio 1.13 Activated Partial Thromboplast Time 37 seconds (23-35) Sodium Level 140 mmol/L (137-145) Potassium Level 4.4 mmol/L (3.5-5.0) Chloride Level 100 mmol/L (98-107) Carbon Dioxide Level 33 mmol/L (22-31) Blood Urea Nitrogen 18 mg/dl (7-18) Creatinine 0.90 mg/dl (0.52-1.04) Glomerular Filtration Rate Calc > 60.0 Random Glucose 180 mg/dl (75-110) Calcium Level 8.7 mg/dl (8.4-10.2) Total Bilirubin 1.2 mg/dl (0.2-1.3) Aspartate Amino Transf (AST/SGOT) 39 U/L (0-35) Alanine Aminotransferase (ALT/SGPT) 29 U/L (0-56) Alkaline Phosphatase 89 U/L (0-126) Total Creatine Kinase 871 U/L (30-135) Troponin I 0.290 ng/ml B-Type Natriuretic Peptide 321 pg/ml (0-100) Total Protein 6.6 g/dl (6.3-8.2) Albumin 3.3 g/dl (3.5-5.0) Chemistry Test 08/30/18 09:02 White Blood Count 12.5 k/uL (4.5-11.0) Red Blood Count 3.84 M/uL (4.17-5.56) Hemoglobin 12.5 g/dL (12.0-16.0) Hematocrit 37.7 % (34.0-47.0) Mean Corpuscular Volume 98.1 fL (80.0-96.0) Mean Corpuscular Hemoglobin 32.5 pg (26.0-33.0) Mean Corpuscular Hemoglobin Concent 33.2 g/dL (32.0-36.0) Red Cell Distribution Width 14.3 % (11.5-14.5) Platelet Count 173 K/uL (150-450) Mean Platelet Volume 7.6 fL (7.2-11.1) Neutrophils (%) (Auto) 76.6 % (39.4-72.5) Lymphocytes (%) (Auto) 11.1 % (17.6-49.6) Monocytes (%) (Auto) 11.4 % (4.1-12.4) Eosinophils (%) (Auto) 0.3 % (0.4-6.7) Basophils (%) (Auto) 0.6 % (0.3-1.4) Nucleated RBC Relative Count (auto) 0.0 /100WBC Neutrophils # (Auto) 9.6 K/uL (2.0-7.4) Lymphocytes # (Auto) 1.4 K/uL (1.3-3.6) Monocytes # (Auto) 1.4 K/uL (0.3-1.0) Eosinophils # (Auto) 0.0 K/uL (0.0-0.5) Basophils # (Auto) 0.1 K/uL (0.0-0.1) Nucleated RBC Absolute Count (auto) 0.00 K/uL Prothrombin Time 14.5 seconds (12.0-14.4) Prothromb Time International Ratio 1.13 Activated Partial Thromboplast Time 37 seconds (23-35) Glomerular Filtration Rate Calc > 60.0 Calcium Level 8.7 mg/dl (8.4-10.2) Total Bilirubin 1.2 mg/dl (0.2-1.3) Aspartate Amino Transf (AST/SGOT) 39 U/L (0-35) Alanine Aminotransferase (ALT/SGPT) 29 U/L (0-56) Alkaline Phosphatase 89 U/L (0-126) Total Creatine Kinase 871 U/L (30-135) Troponin I 0.290 ng/ml B-Type Natriuretic Peptide 321 pg/ml (0-100) Total Protein 6.6 g/dl (6.3-8.2) Albumin 3.3 g/dl (3.5-5.0) Coagulation Test 08/30/18 09:02 Prothrombin Time 14.5 seconds Prothromb Time International Ratio 1.13 Activated Partial Thromboplast Time 37 seconds EKG/Imaging EKG Interpretation EKG shows normal sinus rhythm with a ventricular rate of 78 bpm. This was compared to an EKG from 08/10/2018 no changes were noted Monitor Interpretation: Normal Sinus Rhythm Imaging FACILITY: [facility] PATIENT NAME: Helena Ceballos : 1945 MR: [id number] V: [id number] EXAM DATE: ORDERING PHYSICIAN: NADIYA BRANNON TECHNOLOGIST: Location: [facility] Patient: Helena Ceballos : 1945 Visit/Account:[id number] Date of Sevice: 08/30/2018 Single view of the chest Indication: Fall, left hip and chest pain. Right shoulder pain, she surgery two days ago. Comparison: X-ray examination chest December 2015 Findings: Heart is mildly enlarged although is accentuated by the frontal projection. The patient is subtly rotated to the left. Lungs are clear without focal infiltrate, consolidation, effusion or pneumothorax. Operative changes noted from the right TSA. The hardware appears intact. IMPRESSION: 1. No acute cardiopulmonary process. Report Dictated By: Yasir Perez MD at 08/30/2018 10:16 AM Report E-Signed By: Yasir Perez MD at 08/30/2018 10:18 AM WSN:[facility] FACILITY: [facility] PATIENT NAME: Helena Ceballos : 1945 MR: [id number] V: [id number] EXAM DATE: [id number] ORDERING PHYSICIAN: NADIYA BRANNON TECHNOLOGIST: Location: [facility] Patient: Helena Ceballos : 1945 Visit/Account:[id number] Date of Sevice: 08/30/2018 2 views right shoulder Indication: Fall, pain. Surgery two days ago Comparison: X-ray examination right shoulder August 28. Findings: Stable anatomic alignment status post reverse right shoulder arthroplasty. No acute bony finding. IMPRESSION: 1. Stable appearance right reverse TSA. No acute finding Report Dictated By: Yasir Perez MD at 08/30/2018 10:21 AM Report E-Signed By: Yasir Perez MD at 08/30/2018 10:22 AM WSN:[facility] FACILITY: [facility] PATIENT NAME: Helena Ceballos : 1945 MR: [id number] V: [id number] EXAM DATE: [id number] ORDERING PHYSICIAN: NADIYA BRANNON TECHNOLOGIST: Location: [facility] Patient: Helena Ceballos : 1945 Visit/Account:[id number] Date of Sevice: 08/30/2018 HIP LEFT Indication: Fall, postop. Comparison: None available Findings: SI joints are symmetric. Pubic rami are intact. Osseous alignment is seen at the hips. The frontal projection left hip demonstrates subtle cortical irregularity at the superior femoral head neck junction. There is a obliquely oriented lucency at this region suspicious for a nondisplaced subcapital neck fracture. IMPRESSION: 1. Findings concerning for a nondisplaced left subcapital neck fracture. If further evaluation is needed, noncontrast CT the pelvis could be performed. Report Dictated By: Yasir Perez MD at 08/30/2018 10:18 AM Report E-Signed By: Yasir Perez MD at 08/30/2018 10:21 AM WSN:[id number] EXAM DATE: ORDERING PHYSICIAN: NADIYA BRANNON TECHNOLOGIST: Location: [facility] Patient: Helena Ceballos : 1945 Visit/Account:[id number] Date of Sevice: 08/30/2018 EXAMINATION: CTA Chest With Contrast 08/30/2018 8:45 AM HISTORY: dyspnea; post surgery TECHNIQUE: Pulmonary embolus protocol - Thin-slice axial imaging of the chest was performed during maximal pulmonary arterial opacification with intravenous nonionic iodinated contrast. 3D slab MIPs and 2D reconstructions in the coronal and sagittal planes were performed. Mail Agent images have been stored on PACS. Contrast: 75 mL of IV Isovue 370. One of the following dose optimization techniques was utilized in the performance of this exam: Automated exposure control; adjustment of the mA and/or kV according to the patient's size; or use of an iterative reconstruction technique. Specific details can be referenced in the facility's radiology CT exam operational policy. COMPARISON STUDIES: Chest x-ray today. FINDINGS: Angiographic Findings: Pulmonary arteries: There are no filling defects in the main, right, left, lobar, segmental or visualized sub-segmental branches of the pulmonary arterial system Other vasculature: Aortic atherosclerosis without aneurysm. Lack of substantial visible coronary calcifications. Additional non-angiographic findings: Lungs / pleura: Dependent consolidation in both lungs most notably the posterior portion of the right lower lobe and in the left lower lobe against the mediastinum and in the posterior base. No overt interlobular septal thickening or clear parenchymal edema pattern. No significant effusion. Mediastinum / fred: negative Heart / pericardium: negative Musculoskeletal / Body wall: Right shoulder replacement. Mild degenerative changes in the spine. Osteoarthritis in the left shoulder. Lymph node assessment: negative Lower neck: negative Upper abdomen: Disproportionate left lobe liver prominence with lobulated capsular contours and what appears to be a recanalized umbilical vein. The spleen is not significantly enlarged and there is no upper abdominal ascites. Partially imaged rounded focus medial to the upper pole of the right kidney is likely a cyst but is incompletely assessed by this study. IMPRESSION: 1. Negative CTA evaluation for PE. 2. Dependent consolidation in the lungs may simply be atelectasis. Infiltrate cannot be excluded. 3. 2.2 cm rounded density medial to the upper pole of the right kidney. This may simply be an incompletely assessed exophytic renal cyst but is not thoroughly defined by this study. I do see that a cyst demonstrated was not well demonstrated by ultrasound 01/13/2016, although one of the transverse images may partially contain an exophytic medial cyst in retrospect. Repeat renal ultrasound could be done to see if there is a cyst in this location. 4. Cirrhotic appearance of the liver. Report Dictated By: Dyllan Duarte MD at 08/30/2018 10:20 AM Report E-Signed By: Dyllan Duarte MD at 08/30/2018 10:34 AM WSN:[email or web address] FACILITY: [facility] PATIENT NAME: Helena Ceballos : 1945 MR: [id number] V: [id number] EXAM DATE: ORDERING PHYSICIAN: NADIYA BRANNON TECHNOLOGIST: Location: [facility] Patient: Helena Ceballos : 1945 Visit/Account:[id number] Date of Sevice: 08/30/2018 HIP LEFT W/O CONTRAST COMPARISON: Left hip radiographs 08/30/2018. HISTORY: possible femoral neck fxr on XR. TECHNIQUE: Noncontrast axial CT of the left hip with coronal and sagittal reformats. One of the following dose optimization techniques was utilized in the performance of this exam: automated exposure control; adjustment of the mA an d/or kV according to patient size; or use of iterative reconstruction technique. Specific details can be referenced in the facility's radiology CT exam operational policy. CONTRAST: None. FINDINGS: BONES : There is no discrete fracture identified in the left hip or visualized left hemipelvis. The pubic rami are intact. There is subtle but chronic appearing irregularity of the cortex of the lateral femoral head neck junction, without appreciable fracture line or trabecular disruption. Mild degenerative narrowing in the left hip, with small degenerative cysts in the acetabulum. No bone lesions are identified. Pubic symphysis is intact. Visualized right and left sacroiliac joints are intact and unremarkable. FLUID: No appreciable effusion or drainable fluid collection. SOFT TISSUES: Unremarkable. No focal muscle atrophy or appreciable muscle edema. OTHER: Excreted contrast in the incompletely imaged bladder from the previous study.. IMPRESSION: 1. No CT evidence of a left hip fracture. 2. Mild left hip osteoarthritis. Report Dictated By: Kevin Bassett at 08/30/2018 11:17 AM Report E-Signed By: Kevin Bassett at 08/30/2018 11:21 AM WSN:[email or web address] ED Course/Re-evaluation ED Course 08/30/2018 8:50:57 am patient with dyspnea. No history of asthma, wears CPAP in chronic oxygen during the day. Recent surgery raises suspicion for possible pulmonary embolism. We'll perform CT of the chest will also perform cardiac evaluation. We'll also give 1 DuoNeb treatment to see if there is any improvement in shortness of breath. 08/30/2018 9:35:17 am troponin returned at 0.29 which is essentially twice the upper limit of normal. Patient was given 1 m/kg of Lovenox subcutaneously. We are calling [facility] to arrange transport if they have a bed available. Re-evaluation 08/30/2018 10:08:34 am spoke with family regarding elevated troponin along with the need to transfer patient for suspected acute coronary syndrome. Still awaiting CT scan looking for PE which still is a possibility plan at this time will be to treat with 1 mg/kg of subcutaneous Lovenox. Here back from [facility] with regard to transport of the patient Procedure 08/30/2018 11:39:[address] Keller at [facility] Decision to Disposition Date: Aug 30, 2018 Decision to Disposition Time: 11:39 Depart Departure Latest Vital Signs Vital Signs Date Time Temp Pulse Resp B/P (MAP) Pulse Ox O2 Delivery O2 Flow Rate FiO2 08/30/18 11:18 72 18 91 Non-Rebreather 08/30/18 10:08 108/92 (97) 08/30/18 09:10 15.0 08/30/18 08:40 97.8 Impression: Primary Impression: Elevated troponin Additional Impressions: Hypoxia Pleural effusion Condition: Improved Disposition: XFER TO [facility] Referrals: NICKY WHEELER MD (PCP) Problem Qualifiers NADIYA BRANNON MD Aug 30, 2018 08:33
[2018-08-30] MEDS ORDERED: ASPIRIN 81 MG CHEW PO ONE (08:40)
[2018-08-30] MEDS ORDERED: ALBUTEROL/IPRATROPIUM 3 ML NEB NEB ONE (08:55)
[2018-08-30] MEDS ORDERED: NS(*) 0.9% 50 ML BAG 50 ML ONE (09:09)
[2018-08-30] MEDS ORDERED: IOPAMIDOL 76% 75 ML INFUS BTL 75 ML ONE (09:10)
[2018-08-30 09:19] LABS: PLATELET COUNT, AUTOMATED 173 K/uL (150-450)
[2018-08-30 09:22] LABS: INR 1.13
--- NOTE | 2018-08-30 09:23 | EKG ---
FACILITY: [facility] - [place] PATIENT NAME: FER SALMON : [id number] MR: [id number] V: [id number] EXAM DATE: ORDERING PHYSICIAN: NADIYA BRANNON TECHNOLOGIST: Test Reason : Blood Pressure : / mmHG Vent. Rate : 078 BPM Atrial Rate : 078 BPM P-R Int : 160 ms QRS Dur : 104 ms QT Int : 392 ms P-R-T Axes : 043 024 046 degrees QTc Int : 446 ms Normal sinus rhythm Normal ECG When compared with ECG of 09-AUG-2018 14:42, No significant change was found Confirmed by BILL KNIGHT ([id number]) on 08/30/2018 4:22:58 PM Referred By: Confirmed By:BILL KNIGHT
[2018-08-30] MEDS ORDERED: ENOXAPARIN 100 MG/ML SYR SC ONE (09:35)
--- NOTE | 2018-08-30 10:22 | RADIOLOGY IMAGING REPORT ---
FACILITY: [facility] - [place] PATIENT NAME: Helena Ceballos : 1945 MR: [id number] V: [id number] EXAM DATE: ORDERING PHYSICIAN: NADIYA BRANNON TECHNOLOGIST: Location: [facility] [place] Patient: Helena Ceballos : 1945 Visit/Account:[id number] Date of Sevice: 08/30/2018 Single view of the chest Indication: Fall, left hip and chest pain. Right shoulder pain, she surgery two days ago. Comparison: X-ray examination chest December 2015 Findings: Heart is mildly enlarged although is accentuated by the frontal projection. The patient is subtly ro tated to the left. Lungs are clear without focal infiltrate, consolidation, effusion or pneumothorax . Operative changes noted from the right TSA. The hardware appears intact. IMPRESSION: 1. No acute cardiopulmonary process. Report Dictated By: Yasir Perez MD at 08/30/2018 10:16 AM Report E-Signed By: Yasir Perez MD at 08/30/2018 10:18 AM WSN:[id number]
--- NOTE | 2018-08-30 10:26 | RADIOLOGY IMAGING REPORT ---
[place] [facility] [place]: Helena Ceballos : 1945 MR: [id number] V: [id number] EXAM DATE: ORDERING PHYSICIAN: NADIYA BRANNON TECHNOLOGIST: Location: [facility] Patient: Helena Ceballos : 1945 Visit/Account:[id number] Date of Sevice: 08/30/2018 HIP LEFT Indication: Fall, postop. Comparison: None available Findings: SI joints are symmetric. Pubic rami are intact. Osseous alignment is seen at the hips. The frontal projection left hip demonstrates subtle cortical irregularity at the superior femoral hea d neck junction. There is a obliquely oriented lucency at this region suspicious for a nondisplaced subcapital neck fracture. IMPRESSION: 1. Findings concerning for a nondisplaced left subcapital neck fracture. If further evaluation is needed, noncontrast CT the pelvis could be performed. Report Dictated By: Yasir Perez MD at 08/30/2018 10:18 AM Report E-Signed By: Yasir Perez MD at 08/30/2018 10:21 AM WSN:[id number]
--- NOTE | 2018-08-30 10:27 | RADIOLOGY IMAGING REPORT ---
FACILITY: [facility] - [place] PATIENT NAME: Helena Ceballos : 1945 MR: [id number] V: [id number] EXAM DATE: ORDERING PHYSICIAN: NADIYA BRANNON TECHNOLOGIST: Location: [facility] Patient: Helena Ceballos : 1945 Visit/Account:[id number] Date of Sevice: 08/30/2018 2 views right shoulder Indication: Fall, pain. Surgery two days ago Comparison: X-ray examination right shoulder August 28. Findings: Stable anatomic alignment status post reverse right shoulder arthroplasty. No acute bony finding. IMPRESSION: 1. Stable appearance right reverse TSA. No acute finding Report Dictated By: Yasir Perez MD at 08/30/2018 10:21 AM Report E-Signed By: Yasir Perez MD at 08/30/2018 10:22 AM WSN:[id number]
--- NOTE | 2018-08-30 10:37 | RADIOLOGY IMAGING REPORT ---
FACILITY: [facility] PATIENT NAME: Helena Ceballos : 1945 MR: [id number] V: [id number] EXAM DATE: ORDERING PHYSICIAN: NADIYA BRANNON TECHNOLOGIST: Location: [facility] [place] Patient: Helena Ceballos : 1945 Visit/Account:[id number] Date of Sevice: 08/30/2018 EXAMINATION: CT Head without intravenous contrast HISTORY: Trauma. TECHNIQUE: Axial images were obtained from the skull base to the vertex without intravenous contrast . Sagittal and coronal reformatted images are also submitted. One of the following dose optimization techniques was utilized in the performance of this exam: Autom ated exposure control; adjustment of the mA and/or kV according to the patient's size; or use of an i terative reconstruction technique. Specific details can be referenced in the facility's radiology C T exam operational policy. COMPARISON: None available. FINDINGS: Brain volume: Normal. Ventricles: Negative. Acute ischemic changes: None. Hemorrhage: None. Masses / edema: None. Carrero-white: Negative. White matter: Negative. Vessels: Calcified plaque in the carotid siphons. Normal density in the dural venous sinuses. Extra-axial: Negative. Calvarium / skull base: Negative. Visualized sinuses / orbits: Leftward nasal septal deviation with pawan bullosa of the right middle turbinate. Mild mucosal thickening in the left maxillary sinus. IMPRESSION: No acute intracranial abnormality. Report Dictated By: Mariano Walker MD at 08/30/2018 10:28 AM Report E-Signed By: Mariano Walker MD at 08/30/2018 10:33 AM WSN:[id number]
--- NOTE | 2018-08-30 10:38 | RADIOLOGY IMAGING REPORT ---
FACILITY: [facility] - [place] PATIENT NAME: Helena Ceballos : 1945 MR: [id number] V: [id number] EXAM DATE: ORDERING PHYSICIAN: NADIYA BRANNON TECHNOLOGIST: Location: [facility] Patient: Helena Ceballos : 1945 Visit/Account:[id number] Date of Sevice: 08/30/2018 EXAMINATION: CTA Chest With Contrast 08/30/2018 8:45 AM HISTORY: dyspnea; post surgery TECHNIQUE: Pulmonary embolus protocol - Thin-slice axial imaging of the chest was performed during maximal pulmonary arterial opacification with intravenous nonionic iodinated contrast. 3D slab MIPs a nd 2D reconstructions in the coronal and sagittal planes were performed. Lock Master images have b een stored on PACS. Contrast: 75 mL of IV Isovue 370. One of the following dose optimization techniques was utilized in the performance of this exam: Autom ated exposure control; adjustment of the mA and/or kV according to the patient's size; or use of an i terative reconstruction technique. Specific details can be referenced in the facility's radiology C T exam operational policy. COMPARISON STUDIES: Chest x-ray today. FINDINGS: Angiographic Findings: Pulmonary arteries: There are no filling defects in the main, right, left, lobar, segmental or visual ized sub-segmental branches of the pulmonary arterial system Other vasculature: Aortic atherosclerosis without aneurysm. Lack of substantial visible coronary c alcifications. Additional non-angiographic findings: Lungs / pleura: Dependent consolidation in both lungs most notably the posterior portion of the right lower lobe and in the left lower lobe against the mediastinum and in the posterior base. No overt i nterlobular septal thickening or clear parenchymal edema pattern. No significant effusion. Mediastinum / fred: negative Heart / pericardium: negative Musculoskeletal / Body wall: Right shoulder replacement. Mild degenerative changes in the spine. Os teoarthritis in the left shoulder. Lymph node assessment: negative Lower neck: negative Upper abdomen: Disproportionate left lobe liver prominence with lobulated capsular contours and what appears to be a recanalized umbilical vein. The spleen is not significantly enlarged and there is no upper abdominal ascites. Partially imaged rounded focus medial to the upper pole of the right kidne y is likely a cyst but is incompletely assessed by this study. IMPRESSION: 1. Negative CTA evaluation for PE. 2. Dependent consolidation in the lungs may simply be atelectasis. Infiltrate cannot be excluded. 3. 2.2 cm rounded density medial to the upper pole of the right kidney. This may simply be an incom pletely assessed exophytic renal cyst but is not thoroughly defined by this study. I do see that a c yst demonstrated was not well demonstrated by ultrasound 01/13/2016, although one of the transverse im ages may partially contain an exophytic medial cyst in retrospect. Repeat renal ultrasound could be done to see if there is a cyst in this location. 4. Cirrhotic appearance of the liver. Report Dictated By: Dyllan Duarte MD at 08/30/2018 10:20 AM Report E-Signed By: Dyllan Duarte MD at 08/30/2018 10:34 AM WSN:[id number]
[2018-08-30] MEDS ORDERED: AZITHROMYCIN(*) 500 MG 500 MG in NS(*) 0.9% 250 ML BAG 250 ML IVPB ONE (11:00)
[2018-08-30] MEDS ORDERED: cefTRIAXone 1 GM VIAL IVP ONE (11:00)
--- NOTE | 2018-08-30 11:25 | RADIOLOGY IMAGING REPORT ---
[place] [facility] [place] NAME: Helena Ceballos : 1945 MR: [id number] V: [id number] EXAM DATE: ORDERING PHYSICIAN: NADIYA BRANNON TECHNOLOGIST: Location: [facility] Patient: Helena Ceballos : 1945 Visit/Account:[id number] Date of Sevice: 08/30/2018 HIP LEFT W/O CONTRAST COMPARISON: Left hip radiographs 08/30/2018. HISTORY: possible femoral neck fxr on XR. TECHNIQUE: Noncontrast axial CT of the left hip with coronal and sagittal reformats. One of the following dose optimization techniques was utilized in the performance of this exam: auto mated exposure control; adjustment of the mA and/or kV according to patient size; or use of iterative reconstruction technique. Specific details can be referenced in the facility's radiology CT exam op erational policy. CONTRAST: None. FINDINGS: BONES : There is no discrete fracture identified in the left hip or visualized left hemipelvis. The pubic rami are intact. There is subtle but chronic appearing irregularity of the cortex of the latera l femoral head neck junction, without appreciable fracture line or trabecular disruption. Mild degene rative narrowing in the left hip, with small degenerative cysts in the acetabulum. No bone lesions ar e identified. Pubic symphysis is intact. Visualized right and left sacroiliac joints are intact and u nremarkable. FLUID: No appreciable effusion or drainable fluid collection. SOFT TISSUES: Unremarkable. No focal muscle atrophy or appreciable muscle edema. OTHER: Excreted contrast in the incompletely imaged bladder from the previous study.. IMPRESSION: 1. No CT evidence of a left hip fracture. 2. Mild left hip osteoarthritis. Report Dictated By: Kevin Bassett at 08/30/2018 11:17 AM Report E-Signed By: Kevin aBssett at 08/30/2018 11:21 AM WSN:[id number]
[2018-08-30] MEDS ORDERED: NS(*) 0.9% 100 ML ADDVANT BAG 100 ML ONE (11:50)
[2018-08-30] MEDS ORDERED: NS(*) 0.9% 250 ML BAG 250 ML ONE (11:56)
[2018-08-30 12:21] VITALS: BP 98/64
== END 2018-08-30 13:02 | disposition short-term general hospital (02) ==
LOC: ER 08:36
DX: R79.89 Other specified abnormal findings of blood chemistry (principal); R09.02 Hypoxemia; J90 Pleural effusion, not elsewhere classified
CPT/HCPCS: 36415; 70450; 71045; 71275; 73030; 73502; 73700; 82550; 83880; 84484; 85025; 85610; 85730; 87040; 93005; 94640; 96365; 96372; 96375; 99285; A9270; J0456; J0696; J1650; J7050; J7620; Q9967; 82040; 82247; 82310; 82374; 82435; 82565; 82947; 84075; 84132; 84155; 84295; 84450; 84460; 84520

== ENCOUNTER → 2018-08-30 | Outpatient (CLI) | payer MEDICARE, OTHER ==
[~2018-08-30] MED LIST changes: -ceFAZolin(*) 2GM/D5W 50ML 50 ML IVPB ONE
== END ==
LOC: AMB 07:46
PROVIDERS: ATTEND Nurse Practitioner
DX: R09.02 Hypoxemia (principal); M54.32 Sciatica, left side; M54.31 Sciatica, right side; W01.0XXA Fall on same level from slipping, tripping and stumbling without subsequent striking against object, initial encounter; Y92.029 Unspecified place in mobile home as the place of occurrence of the external cause
CPT/HCPCS: A0425; A0427

== ENCOUNTER → 2018-08-30 | Outpatient (CLI) | payer MEDICARE, OTHER | LOC: AMB 12:37 | PROVIDERS: ATTEND Nurse Practitioner | DX: J18.9 Pneumonia, unspecified organism (principal); R79.89 Other specified abnormal findings of blood chemistry; R09.02 Hypoxemia; E11.9 Type 2 diabetes mellitus without complications; J44.9 Chronic obstructive pulmonary disease, unspecified; I10 Essential (primary) hypertension | CPT/HCPCS: A0425; A0426 ==

== ENCOUNTER 2018-09-04 11:55 | Inpatient (IN) | payer MEDICARE, OTHER ==
[~2018-09-04] VITALS: Ht 157.5 cm; Wt 126.1 kg
[2018-09-04 12:15] VITALS: BP 128/76
--- NOTE | 2018-09-04 12:55 | Consultant Pharmacy Review ---
Air Bag Stripper Review Medication Review Do All Mecications have a Diag: Yes Pneumococcal Vaccine HX Pneumo Vac ([id number]): Yes (2017) Comments Regarding the Review * Print * Help Title Insulins / Dipeptidyl Peptidase-IV Inhibitors Risk Rating D: Consider therapy modification Summary Dipeptidyl Peptidase-IV Inhibitors may enhance the hypoglycemic effect of Insulins. Severity Major Reliability Rating Fair Patient Management Consider a decrease in insulin dose when initiating therapy w ith a dipeptidyl peptidase-IV inhibitor and monitor patients for hypoglycemia. Insulins Interacting Members Insulin (Oral Inhalation); Insulin Aspart; Insulin Degludec; Insulin Detemir; Insulin Glargine; Insulin Glulisine; Insulin Lispro; Insulin NPH; Insulin Regular Dipeptidyl Peptidase-IV Inhibitors Interacting Members Alogliptin; Anagliptin; Evogliptin; Gemigliptin; Linagliptin; SAXagliptin; SITagliptin; Teneligliptin; Vildagliptin Discussion Manufacturers of several dipeptidyl peptidase-IV (DPP-IV) inhibitors state that in clinical trials, the incidence of hypoglycemia was greater when DPP-IV inhibitors were combined with insulin compared with the use of insulin alone.1,2,3 It is recommended to consider insulin dose reductions in patients receiving both agents and to monitor for the development of hypoglycemia.1,2,3,4 Footnotes 1. Januvia (sitagliptin) [prescribing information]. [place], [place]: [employer]; July 2013. No known interaction C = Monitor therapy X = Avoid combination B = No action needed D = Consider therapy modification Drugs in this analysis: Amitriptyline; AmLODIPine; Crestor; Cyanocobalamin; DULoxetine; Flonase Allergy Relief [OTC]; HydroCHLOROthiazide; Januvia; ROPINIRole; Tresiba FlexTouch; Zantac * Drug-Drug Interactions * D Januvia (Dipeptidyl Peptidase-IV Inhibitors) Tresiba FlexTouch (Insulins) C Amitriptyline (Anticholinergic Agents) HydroCHLOROthiazide (Thiazide and Thiazide-Like Diuretics) C Amitriptyline (STOCK PATCH SAWYER Depressants) ROPINIRole C Amitriptyline (Tricyclic Antidepressants) DULoxetine C AmLODIPine (Blood Pressure Lowering Agents) DULoxetine C AmLODIPine (Blood Pressure Lowering Agents) ROPINIRole (Hypotension- Associated Agents) C DULoxetine HydroCHLOROthiazide (Blood Pressure Lowering Agents) C DULoxetine ROPINIRole (Blood Pressure Lowering Agents) C HydroCHLOROthiazide (Blood Pressure Lowering Agents) ROPINIRole (Hypotension-Associated Agents) C HydroCHLOROthiazide (Hyperglycemia-Associated Agents) Januvia (Antidiabetic Agents) C HydroCHLOROthiazide (Hyperglycemia-Associated Agents) Tresiba FlexTouch (Antidiabetic Agents) C HydroCHLOROthiazide (Thiazide and Thiazide-Like Diuretics) Januvia (Antidiabetic Agents) C HydroCHLOROthiazide (Thiazide and Thiazide-Like Diuretics) Tresiba FlexTouch (Antidiabetic Agents) Disclaimer: Readers are advised that decisions regarding drug therapy must be based on the independent judgment of the clinician, changing information about a drug (eg, as reflected in the literature and slat twister's most current product information), and changing medical practices. * Terms & Conditions // * Disclaimer// * Privacy Policy * [employer] on [employer] * [employer] on [employer] * Get [employer] 2018 [employer] and its affiliates and/or licensors. All Rights Reserved. * Top of Form 1 * Bottom of Form 1 NILDA CARLISLE Sep 04, 2018 12:55
--- NOTE | 2018-09-04 13:57 | History & Physical ---
History of Present Illness Chief Complaint Admitted for rehabilitation History of Present Illness 73yo female with PMHx significant for type 2 DM, JERRY, HTN, RLS, reverse total shoulder replacement, and recent admission for pneumonia/elevated troponin to [facility] [place]. She returns to [facility] for ongoing rehabilitative therapy. She was treated with broad spectrum IV antibiotics for approximately 5 days for a presumed healthcare associated pneumonia. She reports doing well from a respiratory standpoint. She has some exertional dyspnea, but none at rest. She denies any CP or palpitations. She has been able to ambulate short distances. She denies any fevers or chills. She has been eating fairly well. History Problems: (1) Insulin-requiring or dependent type II diabetes mellitus Status: Chronic (2) S/p reverse total shoulder arthroplasty Status: Acute (3) Grade II diastolic dysfunction Status: Chronic (4) JERRY treated with BiPAP Status: Chronic (5) Depression Status: Chronic (6) CUENCA (nonalcoholic steatohepatitis) Status: Chronic (7) Hypertension Status: Chronic (8) Insomnia Status: Chronic (9) Morbid obesity Status: Chronic (10) Hypercholesterolemia Status: Chronic (11) Elevated troponin Status: Acute Home Meds Active Scripts Insulin Degludec (Tresiba Flextouch U-200) 200 Unit/Ml (3 Ml) Insuln.pen, 68 UNITS SC DAILY, #2 BOX 8 Refills Prov:NICKY WHEELER MD 08/09/18 Duloxetine HCl (Duloxetine HCl) 60 Mg Capsule.dr, 2 CAP PO DAILY, #180 CAP 1 Refill Prov:NICKY WHEELER MD 07/27/18 Sitagliptin Phosphate (JANUVIA) 100 Mg Tablet, 100 MG PO QDAY, #90 TAB 0 Refills Prov:NICKY WHEELER MD 07/04/18 Lancets (LANCETS) 1 Each Each, EACH MC DAILY, #1 Prov:NICKY WHEELER MD 06/25/18 Blood Sugar Diagnostic (BLOOD GLUCOSE TEST STRIP) 1 Each Strip, 1 EACH MC DAILY, #100 STRIP 3 Refills Prov:NICKY WHEELER MD 06/25/18 Blood-Glucose Meter (BLOOD GLUCOSE METER) 1 Each Each, EACH MC, #1 Prov:NICKY WHEELER MD 06/25/18 Umeclidinium Brm/Vilanterol Tr (Anoro Ellipta 62.5-25 Mcg INH) 1 Each Disk.w.dev, 1 INHALATION INH DAILY, #30 INHALER Prov:NICKY WHEELER MD 05/25/18 Ropinirole Hcl (ROPINIROLE HCL) 0.25 Mg Tablet, 1 TAB PO QHS, #90 TAB 1 Refill One to three hours before bedtime Prov:NICKY WHEELER MD 03/28/18 Amitriptyline Hcl (AMITRIPTYLINE HCL) 50 Mg Tablet, 1 TAB PO QHS, #90 TAB 3 Refills Prov:NICKY WHEELER MD 02/06/18 Hydrochlorothiazide (HYDROCHLOROTHIAZIDE) 25 Mg Tablet, 1 TAB PO QDAY, #90 TAB 3 Refills Prov:NICKY WHEELER MD 02/05/18 Ranitidine Hcl (ZANTAC) 150 Mg Tablet, 150 MG PO BID, #60 TAB 11 Refills Prov:NICKY WHEELER MD 02/02/18 Cyanocobalamin (Vitamin B-12) (CYANOCOBALAMIN INJECTION) 1,000 Mcg/1 Ml Vial, 1 ML IJ DIRECTED, #12 VIAL Inject 1 ml monthly for life Prov:NICKY WHEELER MD 12/07/17 Amlodipine Besylate (AMLODIPINE BESYLATE) 10 Mg Tablet, 1 TAB PO QDAY, #90 TAB 3 Refills Prov:NICKY WHEELER MD 12/07/17 Losartan/Hydrochlorothiazide (LOSARTAN-HCTZ 100-25 MG TAB) 1 Each Tablet, 1 EACH PO QDAY, #90 TAB 3 Refills Prov:NICKY WHEELER MD 12/07/17 Bedrock, Disposable (NEEDLES) 1 Each Dis.needle, EACH MC DIRECTED, #22 23 guage 1 inch needles, use to give b12 injections. Prov:NICKY WHEELER MD 05/11/17 Syringe W-Cannula,Disp, 3ML (SYRINGE) 1 Each Disp.syrin, EACH DIRECTED, #22 Use for b12 injections Prov:NICKY WHEELER MD 05/11/17 Zolpidem Tartrate (AMBIEN) 5 Mg Tablet, 1 TAB PO QHS, #30 TAB 5 Refills Prov:NICKY WHEELER MD 03/31/17 Rosuvastatin Calcium (Rosuvastatin Calcium) 20 Mg Tablet, 1 TAB PO DAILY, #90 TAB 4 Refills Prov:NICKY WHEELER MD 02/08/17 Albuterol Sulfate 90 Mcg/Act (PROAIR HFA 90 MCG/ACT) 8.5 Gm Hfa.aer.ad, 2 PUFF IH Q4-6H, #1 INHALER 9 Refills Prov:NICKY WHEELER MD 01/26/16 Reported Medications Oxycodone Hcl/Acetaminophen (OXYCODONE-ACETAMINOPHEN 5-325) 1 Each Tablet, 1 EACH PO Q4H PRN for PAIN, #40 TAB 08/29/18 Cholecalciferol (Vitamin D3) (VITAMIN D3) 1,000 Unit Tablet, 1000 UNIT PO DAILY, TAB 05/19/17 Fluticasone Prop 44 Mcg (FLOVENT HFA 44 MCG) 44 Mcg Inha, 2 INH INH BID, INH 02/07/17 Calcium Carbonate (CALCIUM) 600 Mg Tablet, 1 TAB PO QDAY, TAB 11/25/15 Aspirin (ASPIR 81) 81 Mg Tablet.dr, 1 TAB PO QDAY, TAB 11/25/15 Discontinued Scripts Hydrocodone Bit/Acetaminophen (HYDROCODON-ACETAMINOPHEN 5-325) 1 Each Tablet, 1 TAB PO TID, #60 TAB Prov:NICKY WHEELER MD 06/14/18 Allergies: Coded Allergies: Sulfa (Sulfonamide Antibiotics) (Verified Allergy, Intermediate, RASH, 08/30/18) lisinopril (Verified Allergy, Intermediate, cough, 08/30/18) Uncoded Allergies: HAYFEVER (Allergy, Intermediate, SNEEZING, ITCHY EYES, 06/04/13) TAPES/ADHESIVES (Allergy, Mild, BLISTERS , 07/05/17) Patient History: FH: cancer siblings FH: diabetes mellitus siblings FH: stroke siblings Hx Smoking: No Smoking Status: Former Smoker When Quit Tobacco?: 1971, quit as soon as found out she was w/[facility] Caffeine Intake: Coffee Caffeine/Cups Per Day: one cup of caramel macchiato Hx Alcohol Use: No Hx Substance Use Disorder: No Social Drug Use: Never Review of Systems Cardiovascular: No Chest Pain, No Palpitations Respiratory: Shortness of Breath (with exertion), Cough Psychiatric: Depression Exam Vital Signs Vital Signs Date Time Temp Pulse Resp B/P (MAP) Pulse Ox O2 Delivery O2 Flow Rate FiO2 09/04/18 12:15 97.3 64 22 128/76 (93) 96 Nasal Cannula 3.0 General Appearance: Alert, Awake Cardiovascular: Regular Rate and Rhythm (with soft sysytolic murmur) Respiratory: Other (few scattered rhonchi/no wheezes) Chest: No Tenderness GI: Abd Soft and Non-Tender (obese) Extremities: Warm, Perfused, Edema (1-2+ both LE to knees) Integumentary: Other (Right shoulder incision clean and dry - steristrips are in place. Multiple heparin injection sites over abdomen.) Psych: Alert & Oriented X3 Assessment and Plan Problems: (1) Pneumonia Status: Acute Assessment & Plan: She was treated for approximately 5 days at [facility] with IV Zosyn, vancomycin, azithromycin. No antibiotics are listed to be continued. Will need to contact the discharging service to see what was expected for completion of her course. Will continue supplemental oxygen. Watch closely and modify therapy as needed. (2) Hypertension Status: Chronic Assessment & Plan: Will continue the amlodipine (with parameters) and monitor BPs. (3) Depression Status: Chronic Assessment & Plan: Continue Cymbalta. (4) JERRY treated with BiPAP Status: Chronic Assessment & Plan: Continue BiPAP. (5) Insulin-requiring or dependent type II diabetes mellitus Status: Chronic Assessment & Plan: Will place on ADA diet, monitor glucoses, resume her Levemir 15 units BID, use SSI as needed. (6) S/p reverse total shoulder arthroplasty Status: Acute Assessment & Plan: Continue PT/OT. (7) Elevated troponin Status: Acute Assessment & Plan: [facility] reports this was believed to be secondary to her acute illness and possible "leak" or "strain". It was recommended to consider possible stress testing. She appears to be asymptomatic at this time. Copies to: NICKY WHEELER MD ; Venous Thromboembolism Antithrombotics Is Pt On Any Antithrombotics?: No Prophylaxis Tx Contraindicated Pharmacological Contraindicati: Pt at Low Risk for VTE (she is ambulatory) GER ATKINSON MD Sep 04, 2018 13:57
--- NOTE | 2018-09-04 14:18 | OT ECF NOTE ---
Type of Note: Initial Note Primary Medical Diagnosis: Elevated Troponin, Right Reverse TSA Occupational Therapy Evaluation Date: 09-04-18 SUBJECTIVE: Prior Hospitalization: Please refer to chart for details. Prior Level of Function: Pt. required Min A to perform toilet hygiene activities and dressing activities. Prior Living Status: Single level house Spouse Living with family Community Services: Home Accessibility: One step into home Ramp All needs on one level Walk-in shower Equipment Owned: Front wheeled walker Tub/shower chair Wheelchair Medical Complications/Past Medical History: Please refer to chart for details. Psychosocial Support: Pt. has a supportive and grand daughter. Pain Scale (0-10): 0/10 Hand Dominance: Right OBJECTIVE: Strength: MMT: Right Left Shoulder Flexion [*] [*] Elbow Flexion [*] [*] Wrist Extension [*] [*] Order Desk Caller [*] [*] (5= normal, 4= good, 3= fair, 2= poor, 1= trace) ROM: Right UE in basic sling Functional Transfer: Assistive Device: None Transfer Ability: 1-person assist SBA CGA ADL: Upper body dressing: Assistive device: Upper body dressing ability: N/T Lower body dressing: Assistive device: Lower body dressing ability: N/T Toileting: Assistive device: Toileting ability: N/T Grooming/hygiene: Assistive device: Grooming ability: N/T Bathing: Assistive device: Bathing ability: N/T Standardized Assessment: Deshawn Index of Activities of Daily Living- Pt. scored a 11/20 on this Index upon initial evaluation. ASSESSMENT: Pt. is a 73 year old female who underwent a Right reverse TSA surgery by Dr. Victor on 08/29/18 at [facility]. Pt. was d/c to home where she had a fall and was SOB. Pt. was taken to the ER and was found to have an elevated troponin and was thus d/c to [facility]. Pt. was admitted to [facility] for further rehab to increase independence in ADL's. Problem List/Current Limitations: Pain Decreased WB Decreased activity oanh Decreased ROM Poor safety awareness Short Term Goals: 1. Pt. to perform dressing activities with Min A. 2. Pt. to perform showering activities with Min A. 3. Pt. to perform toileting activities with Min A. 4. Pt. to improve Deshawn Index of ADL by 2 points. Long-Term Goals: Return home with HH or OP therapy. Patient Goals: Return home Rehabilitation Prognosis: Fair Barriers to Discharge: complex medical issues, recent surgery, non-weight bearing of dominant UE PLAN: The patient will benefit from skilled occupational therapy services 5 times per week for 2 weeks including: Ther ex ADL training Safety training Ther act IADL training Transfer training Adaptive equip training Bed mobility Thank you for this referral. If you have any questions, concerns, or comments about this report or plan, please contact me at . Hilary Elizabeth, OTR/L Occupational Therapist [facility]
[2018-09-04] MEDS: AMOX/CLAV 875 MG TAB PO SCH (17:27)
[2018-09-04] MEDS: INSULIN HUM LISPRO 100 UN/ML 3 ML VIAL SUBQ PRN ×2 (17:27→20:34)
[2018-09-04] MEDS: RANITIDINE HCL 150 MG TAB PO SCH (20:32)
[2018-09-04] MEDS: AMITRIPTYLINE HCL 25 MG TAB PO SCH (20:32)
[2018-09-04] MEDS: ROSUVASTATIN CALCIUM 10 MG TAB PO SCH (20:32)
[2018-09-04] MEDS: INSULIN DETEMIR 100 U/ML 3 ML PEN SUBQ SCH (20:33)
[2018-09-05 06:17] LABS: PLATELET COUNT, AUTOMATED 164 K/uL (150-450)
[2018-09-05 08:20] VITALS: BP 112/53
[2018-09-05] MEDS: FLUTICASONE PROP 0.05% 16 GM ENA SCH ×2 (09:00→12:25)
[2018-09-05] MEDS: amLODIPine BESYL(*) 5 MG TAB PO SCH (09:00)
[2018-09-05] MEDS ORDERED: amLODIPine BESYL(*) 5 MG TAB PO SCH (09:00)
[2018-09-05] MEDS: HYDROCHLOROTHIAZIDE 25 MG TAB PO SCH (09:00)
[2018-09-05] MEDS ORDERED: HYDROCHLOROTHIAZIDE 25 MG TAB PO SCH (09:00)
[2018-09-05] MEDS: AMOX/CLAV 875 MG TAB PO SCH ×2 (09:23→17:01)
[2018-09-05] MEDS: DULoxetine HCL 30 MG CAPCR PO SCH (09:23)
[2018-09-05] MEDS: INSULIN DETEMIR 100 U/ML 3 ML PEN SUBQ SCH ×2 (09:24→20:27)
[2018-09-05] MEDS: RANITIDINE HCL 150 MG TAB PO SCH ×2 (09:24→20:27)
[2018-09-05] MEDS: predniSONE 20 MG TAB PO SCH (09:24)
[2018-09-05] MEDS: AZITHROMYCIN 250 MG TAB PO SCH (09:24)
--- NOTE | 2018-09-05 14:53 | PT ECF NOTE ---
Type of Note: Initial Note Primary Medical Diagnosis: Weakness, recent TSA, elevated troponin Physical Therapy Evaluation Date: 09/05/18 SUBJECTIVE: Prior Hospitalization: Please see Coub Prior Level of Function: Independent with functional mobility without assistive device Prior Living Status: Single level house, Spouse Community Services: No known needs Home Accessibility: One step into home Equipment Owned: Front wheeled walker, Tub/shower chair, Wheelchair Medical Complications/Past Medical History: Please see Coub NWB R UE Psychosocial Support: Supportive Pain Scale (0-10): none reported OBJECTIVE: Bed Mobility: Not observed Transfers: SBA Gait: SBA x 150' without assistive device. 10 meter walk test (0.6m/second cannot function independently): 10 meters in 16 seconds = 0.6m/s Other Objective Measures: Pt only able to tolerate activity for total of 15 minutes. ASSESSMENT: Pt presents with decreased tolerance to activity which affects her ability to independently perform ADLs and IADLs. Pt will benefit from skilled PT for endurance training in the context of recent medical decline in order to build tolerance to ADLs and IADLs. Problem List/Current Limitations: Decreased activity tolerance, Decreased strength, Generalized weakness, Shortness of breath Short Term Goals: 1. I bed mobility. 2. I transfers. 3. I gait x 500'. 4. I ascend/descend 1 step. 5. Tolerate 20 minutes of activity to improve tolerance to ADLs and IADLs. 6. Improve gait speed to 0.7 m/sec. Custodial Goals: Return home Patient Goals: Take care of myself Rehabilitation Prognosis: Good Barriers for Discharge: Prior level of function/ability to perform ADLs with recent TSA PLAN: The patient will benefit from skilled physical therapy services 5 times per week for 2 weeks including: Therapeutic Exercise, Therapeutic Activities, Transfer Training, Gait Training, Stair Training, Manual Therapy, ADL's, Safety Training, Neuromuscular Re-educ., Pt/Caregiver Training, Bed Mobility Thank you for this referral. If you have any questions, concerns, or comments about this report or plan, please contact me at . Nichelle Mckenzie, PT, DPT, GCS MTDD
[2018-09-05 18:44] VITALS: BP 122/64
[2018-09-05] MEDS: INSULIN HUM LISPRO 100 UN/ML 3 ML VIAL SUBQ PRN (20:26)
[2018-09-05] MEDS: AMITRIPTYLINE HCL 25 MG TAB PO SCH (20:27)
[2018-09-05] MEDS: ROSUVASTATIN CALCIUM 10 MG TAB PO SCH (20:27)
[2018-09-06 08:35] VITALS: BP 120/56
[2018-09-06] MEDS: HYDROCHLOROTHIAZIDE 25 MG TAB PO SCH (09:00)
[2018-09-06] MEDS: amLODIPine BESYL(*) 5 MG TAB PO SCH (09:00)
[2018-09-06] MEDS: FLUTICASONE PROP 0.05% 16 GM ENA SCH (09:38)
[2018-09-06] MEDS: DULoxetine HCL 30 MG CAPCR PO SCH (09:38)
[2018-09-06] MEDS: INSULIN DETEMIR 100 U/ML 3 ML PEN SUBQ SCH ×2 (09:38→20:27)
[2018-09-06] MEDS: AMOX/CLAV 875 MG TAB PO SCH (09:38)
[2018-09-06] MEDS: AZITHROMYCIN 250 MG TAB PO SCH (09:39)
[2018-09-06] MEDS: predniSONE 20 MG TAB PO SCH (09:39)
[2018-09-06] MEDS: RANITIDINE HCL 150 MG TAB PO SCH ×2 (09:39→20:28)
[2018-09-06 14:06] VITALS: Ht 157.5 cm; Wt 126.1 kg
--- NOTE | 2018-09-06 16:00 | Medical Nutrition Therapy ---
Nutrition Anthropometrics Height (Inches): 62.00 Height (Calculated Centimeters: 157.898948 Weight (Pounds): 278 Weight (Calculated Kilograms): 126.099 Cole Nutrition Score: Adequate Cole Nutrition Risk Score: 18 Dietary Referral Nutrition Risk Factors: Nutrition Risk Comment: Physical Findings Physical Appearance: Morbidly Obese 40+ Skin Appearance Skin Appearance: Edema Edema Location Modifier: Both Edema Location: Foot Type of Edema: Degree of Edema: 2+ Gastrointestinal Symptoms GI Symtoms: Tube Present: Bowel Sounds: Recent Bowel Pattern: Stool Characteristics: Nutritional Diagnosis Nutritional Risk Acuity 3: GERD, Morbid Obesity Nutritional Risk Acuity 4: Good Appetite Past Medical History: Hx T2DM, GERD, Depression, Shoulder surgery Nutritional Acuity: 3-Mild Nutrition Diagnosis: Over-weight/Obesity Nutrition Etiology: Excesssive Nutr. Intake Nutrition Problem/Etiology/Sym: Over-weight/Obesity r/t excessive nutr. intake AEB BMI 50.8, elevated BG, hypertension. Energy Requirement: 2060 (M-SJ * 1.2) Protein Requirement: 120 (1g/kg) Fluid Requirement: 0 (1ml/kcal) Diet Type: Diabetic Nutrition Intervention: Cont diet as ordered, Encourage intake Nutrition Monitoring & Eval Nutrition Goals: Eat 75-100% Meal, Drink > 1500 cc/day RD Patient Assessment Time: [address] Assessment Type: RD Assessment Patient Nutrition Acuity: 3-Mild Follow Up Date: Sep 11, 2018 Nutritional Comment: 09/06 [place] [facility] [place] and T2DM care. Pt has low Alb at 2.7, elevated BG at 131. Pt BMI is 50.9. Pt on Diabetic diet, will follow. MYLA RAIN Sep 06, 2018 15:38
[2018-09-06 16:39] VITALS: BP 132/60
[2018-09-06] MEDS: INSULIN HUM LISPRO 100 UN/ML 3 ML VIAL SUBQ PRN ×2 (16:51→20:27)
[2018-09-06] MEDS: ROSUVASTATIN CALCIUM 10 MG TAB PO SCH (20:28)
[2018-09-06] MEDS: AMITRIPTYLINE HCL 25 MG TAB PO SCH (20:28)
[2018-09-07 07:40] VITALS: BP 139/74
[2018-09-07] MEDS: FLUTICASONE PROP 0.05% 16 GM ENA SCH (08:44)
[2018-09-07] MEDS: RANITIDINE HCL 150 MG TAB PO SCH (08:45)
[2018-09-07] MEDS: DULoxetine HCL 30 MG CAPCR PO SCH (08:45)
[2018-09-07] MEDS: INSULIN DETEMIR 100 U/ML 3 ML PEN SUBQ SCH (08:46)
[2018-09-07] MEDS: amLODIPine BESYL(*) 5 MG TAB PO SCH (09:00)
[2018-09-07] MEDS: HYDROCHLOROTHIAZIDE 25 MG TAB PO SCH (09:00)
[2018-09-07] MEDS ORDERED: predniSONE 10 MG TAB PO SCH (09:00)
--- NOTE | 2018-09-07 13:33 | Hospitalist Depart ---
Discharge Summary Reason for Hosp/Final Diag: (1) Pneumonia Status: Acute Hospital Course & Plan: She was treated for approximately 5 days at [facility] with IV Zosyn, vancomycin, azithromycin for presumed healthcare associated pneumonia. No antibiotics were listed to be continued per the previous hospital. She did continue Azithromycin and Augmentin, as well as prednisone during admission. She will continue oxygen at home at her usual 3L. (2) Hypertension Status: Chronic Hospital Course & Plan: She is on chronic treatment with amlodipine. Continue. (3) Depression Status: Chronic Hospital Course & Plan: Continue Cymbalta. (4) JERRY treated with BiPAP Status: Chronic Hospital Course & Plan: Continue BiPAP. (5) Insulin-requiring or dependent type II diabetes mellitus Status: Chronic Hospital Course & Plan: She was placed on ADA diet, monitor glucoses, resume her Levemir 15 units BID, use SSI as needed. She will continue her usual home regimen at home. (6) S/p reverse total shoulder arthroplasty Status: Acute Hospital Course & Plan: Continue PT/OT. (7) Elevated troponin Status: Acute Hospital Course & Plan: [facility] reports this was believed to be secondary to her acute illness and possible "leak" or "strain". It was recommended to consider possible stress testing. She appears to be asymptomatic at this time. 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 INSPECTOR Follow Up For: ADL Assistance Discharge Instructions Home Meds Active Scripts Insulin Degludec (Tresiba Flextouch U-200) 200 Unit/Ml (3 Ml) Insuln.pen, 68 UNITS SC DAILY, #2 BOX 8 Refills Prov:NICKY WHEELER MD 08/09/18 Duloxetine HCl (Duloxetine HCl) 60 Mg Capsule.dr, 2 CAP PO DAILY, #180 CAP 1 Refill Prov:NICKY WHEELER MD 07/27/18 Sitagliptin Phosphate (JANUVIA) 100 Mg Tablet, 100 MG PO QDAY, #90 TAB 0 Refills Prov:NICKY WHEELER MD 07/04/18 Lancets (LANCETS) 1 Each Each, EACH MC DAILY, #1 Prov:NICKY WHEELER MD 06/25/18 Blood Sugar Diagnostic (BLOOD GLUCOSE TEST STRIP) 1 Each Strip, 1 EACH MC DAILY, #100 STRIP 3 Refills Prov:NICKY WHEELER MD 06/25/18 Blood-Glucose Meter (BLOOD GLUCOSE METER) 1 Each Each, EACH MC, #1 Prov:NICKY WHEELER MD 06/25/18 Umeclidinium Brm/Vilanterol Tr (Anoro Ellipta 62.5-25 Mcg INH) 1 Each Disk.w.dev, 1 INHALATION INH DAILY, #30 INHALER Prov:NICKY WHEELER MD 05/25/18 Ropinirole Hcl (ROPINIROLE HCL) 0.25 Mg Tablet, 1 TAB PO QHS, #90 TAB 1 Refill One to three hours before bedtime Prov:NICKY WHEELER MD 03/28/18 Amitriptyline Hcl (AMITRIPTYLINE HCL) 50 Mg Tablet, 1 TAB PO QHS, #90 TAB 3 Refills Prov:NICKY WHEELER MD 02/06/18 Hydrochlorothiazide (HYDROCHLOROTHIAZIDE) 25 Mg Tablet, 1 TAB PO QDAY, #90 TAB 3 Refills Prov:NICKY WHEELER MD 02/05/18 Ranitidine Hcl (ZANTAC) 150 Mg Tablet, 150 MG PO BID, #60 TAB 11 Refills Prov:NICKY WHEELER MD 02/02/18 Cyanocobalamin (Vitamin B-12) (CYANOCOBALAMIN INJECTION) 1,000 Mcg/1 Ml Vial, 1 ML IJ DIRECTED, #12 VIAL Inject 1 ml monthly for life Prov:NICKY WHEELER MD 12/07/17 Amlodipine Besylate (AMLODIPINE BESYLATE) 10 Mg Tablet, 1 TAB PO QDAY, #90 TAB 3 Refills Prov:NICKY WHEELER MD 12/07/17 Losartan/Hydrochlorothiazide (LOSARTAN-HCTZ 100-25 MG TAB) 1 Each Tablet, 1 EACH PO QDAY, #90 TAB 3 Refills Prov:NICKY WHEELER MD 12/07/17 [place], Disposable (NEEDLES) 1 Each Dis.needle, EACH MC DIRECTED, #22 23 guage 1 inch needles, use to give b12 injections. Prov:NICKY WHEELER MD 05/11/17 Syringe W-Cannula,Disp, 3ML (SYRINGE) 1 Each Disp.syrin, EACH MC DIRECTED, #22 Use for b12 injections Prov:NICKY WHEELER MD 05/11/17 Zolpidem Tartrate (AMBIEN) 5 Mg Tablet, 1 TAB PO QHS, #30 TAB 5 Refills Prov:NICKY WHEELER MD 03/31/17 Rosuvastatin Calcium (Rosuvastatin Calcium) 20 Mg Tablet, 1 TAB PO DAILY, #90 TAB 4 Refills Prov:NICKY WHEELER MD 02/08/17 Albuterol Sulfate 90 Mcg/Act (PROAIR HFA 90 MCG/ACT) 8.5 Gm Hfa.aer.ad, 2 PUFF IH Q4-6H, #1 INHALER 9 Refills Prov:NICKY WHEELER MD 01/26/16 Reported Medications Cholecalciferol (Vitamin D3) (VITAMIN D3) 1,000 Unit Tablet, 1000 UNIT PO DAILY, TAB 05/19/17 Fluticasone Prop 44 Mcg (FLOVENT HFA 44 MCG) 44 Mcg Inha, 2 INH INH BID, INH 02/07/17 Calcium Carbonate (CALCIUM) 600 Mg Tablet, 1 TAB PO QDAY, TAB 11/25/15 Aspirin (ASPIR 81) 81 Mg Tablet.dr, 1 TAB PO QDAY, TAB 11/25/15 Discontinued Reported Medications Oxycodone Hcl/Acetaminophen (OXYCODONE-ACETAMINOPHEN 5-325) 1 Each Tablet, 1 EACH PO Q4H PRN for PAIN, #40 TAB 08/29/18 Diet: Diabetic Activity: As Tolerated, With Walker Special Instructions: Follow up with Dr. Wheeler in 1 week. Copies to: NICKY WHEELER MD ; Venous Thromboembolism Antithrombotics Is Pt On Any Antithrombotics?: No [id number] Certification Face to Face Home Health Certification Institutional Provider conducted the [id number] encounter. Electronic Undersigning Physician Certifies Home Health. I certify that the patient has been under my care and that I had a [id number] encounter that meets the physician [id number]-si-[id number] encounter requirements with this patient. This patient is home-bound due to safety issues and continues to require assistance with ADL's. I certify that based on my findings, that Nursing, Aides and the following Home Health services are medically necessary. Medical Necessity: Nursing, Rehab Date Face to Face Conducted: Sep 07, 2018 CASA JACOBSON Sep 07, 2018 13:33
--- NOTE | 2018-09-07 13:36 | OT ECF NOTE ---
Type of Note: Discharge Note Primary Medical Diagnosis: Elevated Troponin, Right Reverse TSA Occupational Therapy Evaluation Date: 09-04-18 SUBJECTIVE: Prior Hospitalization: Please refer to chart for details. Prior Level of Function: Pt. required Min A to perform toilet hygiene activities and dressing activities. Prior Living Status: Single level house Spouse Living with family Community Services: Pt reports her buddhist and family prepare all meals Home Accessibility: One step into home Ramp All needs on one level Walk-in shower Equipment Owned: Front wheeled walker Tub/shower chair Wheelchair Medical Complications/Past Medical History: Please refer to chart for details. Psychosocial Support: Pt. has a supportive , daughter, and grand daughter. Pain Scale (0-10): 0/10 Hand Dominance: Right OBJECTIVE: Strength: MMT: Right Left Shoulder Flexion [*] [*] Elbow Flexion [*] [*] Wrist Extension [*] [*] Die Storage Clerk [*] [*] (5= normal, 4= good, 3= fair, 2= poor, 1= trace) ROM: Right UE in basic sling Functional Transfer: Assistive Device: None Transfer Ability: Independent ADL: Upper body dressing: Assistive device: Upper body dressing ability: Independent Lower body dressing: Assistive device: Refusing to don araceli hose Lower body dressing ability: Independent Toileting: Assistive device: Toilet aid Toileting ability: Modified Independent Grooming/hygiene: Assistive device: None Grooming ability: Independent Bathing: Assistive device: Shower chair Bathing ability: Independent with nursing. Pt reports no concerns with bathing at home Standardized Assessment: Deshawn Index of Activities of Daily Living- Pt. scored a 11/20 on this Index upon initial evaluation. 19/20 upon discharge (09/07/18). ASSESSMENT: Pt. is a 73 year old female who underwent a Right reverse TSA surgery by Dr. Victor on 08/29/18 at [facility]. Pt. was d/c to home where she had a fall and was SOB. Pt. was taken to the ER and was found to have an elevated troponin and was thus d[place]c to [facility] [place]. Pt. has met skilled OT goals and desires to discharge home at current level of function. Pt reports no concerns with ADLs/IADLs. Short Term Goals: 1. Pt. to perform dressing activities with Min A. GOAL MET 2. Pt. to perform showering activities with Min A. GOAL MET 3. Pt. to perform toileting activities with Min A. GOAL MET 4. Pt. to improve Deshawn Index of ADL by 2 points. GOAL MET Assisted Goals: Return home with HH or OP therapy. Patient Goals: Return home Rehabilitation Prognosis: Fair Barriers to Discharge: complex medical issues, recent surgery, non-weight bearing of dominant UE PLAN: The patient will discharge home with assist from family and HH services. Thank you for this referral. If you have any questions, concerns, or comments about this report or plan, please contact me at . Meggan Park MS, OTR/L Occupational Therapist MILA
[2018-09-07 15:52] VITALS: BP 122/68
--- NOTE | 2018-09-10 13:54 | PT ECF NOTE ---
Type of Note: Discharge Summary 09/07/18 Primary Medical Diagnosis: Weakness, recent TSA, elevated troponin Physical Therapy Evaluation Date: 09/05/18 SUBJECTIVE: Prior Hospitalization: Please see Access Intelligence Prior Level of Function: Independent with functional mobility without assistive device Prior Living Status: Single level house, Spouse Community Services: No known needs Home Accessibility: One step into home Equipment Owned: Front wheeled walker, Tub/shower chair, Wheelchair Medical Complications/Past Medical History: Please see Access [employer] NWB R UE Psychosocial Support: Supportive Pain Scale (0-10): none reported OBJECTIVE: Bed Mobility: Not observed Transfers: SBA Gait: SBA x 200' without assistive device. 10 meter walk test (0.6m/second cannot function independently): 10 meters in 16 seconds = 0.6m/s Other Objective Measures: Pt only able to tolerate activity for total of 15 minutes. ASSESSMENT: Pt has opted to DC home with the assistance of her family. Pt safe to DC home. Short Term Goals: 1. I bed mobility. 2. I transfers. 3. I gait x 500'. 4. I ascend/descend 1 step. 5. Tolerate 20 minutes of activity to improve tolerance to ADLs and IADLs. 6. Improve gait speed to 0.7 m/sec. Jail Goals: Return home Patient Goals: Take care of myself Rehabilitation Prognosis: Good Barriers for Discharge: Prior level of function/ability to perform ADLs with recent TSA PLAN: Pt has opted to DC home with the assistance of her family. Pt safe to DC home. Thank you for this referral. If you have any questions, concerns, or comments about this report or plan, please contact me at . Nichelle Mckenzie, PT, DPT, GCS MTDD
== END 2018-09-07 17:45 | disposition home health service (06) | DRG 194 ==
LOC: ECF 11:55
PROVIDERS: ADMIT Internal Medicine; ATTEND Internal Medicine
PROC: 5A09357 Assistance with Respiratory Ventilation, Less than 24 Consecutive Hours, Continuous Positive Airway Pressure (ICD-10-PCS; principal; 2018-09-04)
DX: J18.9 Pneumonia, unspecified organism (principal); I50.32 Chronic diastolic (congestive) heart failure; Z68.43 Body mass index [BMI] 50.0-59.9, adult; F32.9 Major depressive disorder, single episode, unspecified; G47.33 Obstructive sleep apnea (adult) (pediatric); E11.9 Type 2 diabetes mellitus without complications; I11.0 Hypertensive heart disease with heart failure; K75.81 Nonalcoholic steatohepatitis (NASH); G47.00 Insomnia, unspecified; E66.9 Obesity, unspecified; E78.00 Pure hypercholesterolemia, unspecified; Z96.611 Presence of right artificial shoulder joint; Z79.4 Long term (current) use of insulin; Z99.81 Dependence on supplemental oxygen; Z88.2 Allergy status to sulfonamides; Z88.8 Allergy status to other drugs, medicaments and biological substances; Z87.891 Personal history of nicotine dependence
CPT/HCPCS: 36415; 36416; 82040; 82247; 82310; 82374; 82435; 82565; 82947; 82948; 84075; 84132; 84155; 84295; 84450; 84460; 84520; 85025; 97161; 97165; J1815; J7512

== ENCOUNTER → 2018-10-08 | Outpatient (CLI) | payer MEDICARE, OTHER ==
[2018-09-06 14:06] VITALS: BMI 50.8
[~2018-10-08] MED LIST changes: +INSU100I10 SUBQ; +NEED-653 SUBQ
--- NOTE | 2018-10-08 11:33 | RADIOLOGY IMAGING REPORT ---
FACILITY: [facility] PATIENT NAME: Helena Ceballos : 1945 MR: [id number] V: [id number] EXAM DATE: ORDERING PHYSICIAN: NICKY WHEELER TECHNOLOGIST: Location: [facility] Patient: Helena Ceballos : 1945 Visit/Account:[id number] Date of Sevice: 10/08/2018 EXAMINATION: Abdominal ultrasound complete HISTORY: Renal cysts seen on CTA of the chest COMPARISON: Abdomen ultrasound January 13, 2016 CT of the chest August 30, 2018 FINDINGS: Gallbladder: Surgically absent Liver: Largest measuring 20.5 cm in length Common duct: Not visualized measuring mm. Pancreas: Partially obscured by bowel gas however the visualized portion appeared unremarkable Spleen: Normal in size and echogenicity measuring 11.6 cm in length. Kidneys: Normal in size and echogenicity, the right measures 13 cm in length, and the left 12.3 cm. No hydronephrosis. There is a 2.7 cm cyst upper pole the right kidney Upper abdominal aorta and IVC: Negative. Ascites: None. IMPRESSION: 2.7 cm cyst upper pole the right kidney Hepatomegaly Postsurgical changes from a cholecystectomy Report Dictated By: Carola Jeffrey MD at 10/08/2018 11:17 AM Report E-Signed By: Carola Jeffrey MD at 10/08/2018 11:30 AM WSN:[id number]
== END ==
LOC: US 10-02 02:07
PROVIDERS: ATTEND Emergency Medicine
DX: N28.1 Cyst of kidney, acquired (principal); R16.0 Hepatomegaly, not elsewhere classified; Z90.49 Acquired absence of other specified parts of digestive tract
CPT/HCPCS: 76700